=== PATIENT | female | born 1960 | race Caucasian/White ===

== ENCOUNTER → 2018-07-30 | Outpatient (CLI) | payer BC, OTHER ==
[2018-07-30 10:24] VITALS: BP 104/55; PULSE 74; RESP 18; TEMP 98; BMI 32.8
--- NOTE | 2018-07-30 10:55 | P.GSHP ---
History of Present Illness H&P Date: 07/30/18 Chief Complaint: abnormal mammogram The patient is a 58-year-old white female who had a bilateral screening mammogram on [id number]. This was noted to have some new regional calcifications in the central left breast and diagnostic left breast mammogram was recommended. This was performed and [id number]. On this film there was noted to be new regional calcification extending approximately over 7 cm in the left central slight inferior aspect of the breast seen best on lateral view and slightly outer aspect of the breast on CC view. This extends nearly up to the nipple with heterogeneous morphology of the calcifications. The patient has not noted any masses in her breast. She has no complaints of any nipple discharge or changes. She has no history of any trauma or infection to the breast. Family History: 1. maternal aunt: colon 2. maternal grandfather: lung Hormonal History: menarche: 14 : 3, 3 children, first at 23, breast fed: yes menopause: 55 BCP: 2 years hormones: 1 year on progesten stopped this summer Past Surgical History: 1. Kathy-en-Y gastric bypass 2. Right modified total hip replacement 3. Bilateral carpal tunnel 4. Right breast biopsy Past Medical History: 1. Depression and anxiety Social History: smoke: none alcohol: 1 x week/sine drugs: none - Constitutional Constitutional: Reports sweats - EENT Eyes: denies blurred vision, denies photophobia Ears: deny: decreased hearing, tinnitus Ears, nose, mouth and throat: Denies headache, Denies sore throat - Breasts Breasts: bilateral: as per HPI - Cardiovascular Cardiovascular: Denies chest pain, Denies shortness of breath - Respiratory Respiratory: Denies cough, Denies 7 - Gastrointestinal Gastrointestinal: Denies abdominal pain, Denies diarrhea, Denies nausea, Denies vomiting - Genitourinary (Female) Genitourinary: Denies dysuria, Denies hematuria - Menstruation Menstruation: Reports postmenopausal - Musculoskeletal Comment: arthritis Musculoskeletal: Denies myalgias - Integumentary Integumentary: Denies pruritus, Denies rash - Neurological Neurological: Denies numbness, Denies weakness - Psychiatric Psychiatric: Reports anxiety, Reports depression - Endocrine Comment: lost weight 80 pounds after gastric bypass 18 years ago Endocrine: Reports weight change, Denies fatigue - Hematologic/Lymphatic Comment: none - Allergic/Immunologic Allergic/Immunologic: Reports seasonal allergies Past Medical History Past Medical History: No Reported History History of Any Multi-Drug Resistant Organisms: None Reported Past Surgical History: Bariatric Surgery, Breast Surgery, Orthopedic Surgery Past Anesthesia/Blood Transfusion Reactions: No Reported Reaction Past Psychological History: Anxiety, Depression Smoking Status: Never smoker - Past Family History Father Family Medical History: Coronary Artery Disease (CAD), Myocardial Infarction ([place] ) Mother Additional Family Medical History / Comment(s): depression,anxiety Surgical - Exam Vital Signs Temp Pulse Resp BP Pulse Ox 98 F 74 18 104/55 97 07/30/18 10:17 07/30/18 10:17 07/30/18 10:17 07/30/18 10:17 07/30/18 10:17 BMI 32.8 - General well developed, well nourished, no distress - Eyes normal ocular movement - ENT no hearing loss, no congestion - Neck no masses, trachea midline - Respiratory normal respiratory effort, clear to auscultation - Cardiovascular Rhythm: regular Heart Sounds: normal: S1, S2 - Abdomen Abdomen: soft, non tender, no guarding, no rigid, no rebound - Integumentary no rash, no abnormal pigmentation - Neurologic no disoriented, no combative - Musculoskeletal normal gait, normal posture - Psychiatric oriented to time, oriented to person, oriented to place, speech is normal, memory intact Breast examination: Right breast: Well-healed scar from prior biopsy multi-positional exam no dominant masses or nodules of concern Right axilla: No adenopathy of concern Left breast: Multiple positional exam slight increased fullness in the upper outer quadrant area but no dominant masses or nodules of concern Left axilla: No adenopathy of concern Results Radiographic findings reviewed, abnormal left breast mammogram Assessment and Plan Assessment: Impression: 1. Abnormal left breast mammogram 2. Anxiety/depression Plan: 1. Stereotactic core biopsy of the left breast Risk and benefits of the procedure discussed. Risks include bleeding infection reaction to the anesthetic and possibility to not adequately be able to sample specimen. Alternatives would be watchful waiting or open biopsy which are not recommended at this time. The procedure will be scheduled in the near future Cc: Dr. Dodd
== END | disposition home or self-care (01) ==
LOC: WWCWWP 09:34
PROVIDERS: ATTEND Surgery
DX: Z53.9 Procedure and treatment not carried out, unspecified reason (principal)

== ENCOUNTER → 2018-09-03 | Day surgery (SDC) | payer BC ==
[2018-09-03 07:22] VITALS: RESP 16; TEMP 98; BMI 32.8
[2018-09-03 09:07] VITALS: BP 104/68; PULSE 61
--- NOTE | 2018-09-03 11:22 | MM ---
Stereotactic Mammotome core biopsy left breast 2 sites. HISTORY: Microcalcifications The microcalcifications in question within the left breast 2 sites were targeted by the undersigned. Procedure was performed by the undersigned. Informed consent was obtained and all of the patients questions were answered. The standard sterile technique was utilized and appropriate local anesthesia was obtained with 1% lidocaine. 1% lidocaine and epinephrine was also utilized at each site. Mammotome probe was advanced and multiple core samples were obtained from each site and sent to pathology for interpretation. Microclip markers were deployed at the sites of biopsy. Post procedural mammogram demonstrates appropriate deployment of radiopaque clip marker. The patient tolerated the procedure well and left the department in stable condition. Pathology results are pending. IMPRESSION: Successful stereotactic core biopsy left breast 2 sites with pathology results pending. Pathology Results: Malignant A. LEFT BREAST, SITE A, STEREOTACTIC CORE BIOPSY: Ductal carcinoma in situ (DCIS ), grade 2, with focal associated comedo necrosis and calcifications. See Surgical Pathology Cancer Case Sumamry and Comment. B. LEFT BREAST, SITE B, STEREOTACTIC CORE BIOPSY: Ductal carcinoma in situ (DCIS ), grade 2-3, with associated comedo necrosis and calcifications. See Surgical Pathology Cancer Case Summary and comment. Recommendation Surgical consult of the left breast. JORGED
== END ==
LOC: RADMAMWWP 06:53
PROVIDERS: ATTEND Surgery
DX: D05.12 Intraductal carcinoma in situ of left breast (principal)
CPT/HCPCS: 88305; 88342; 19081; 19082; A4648; J2001

== ENCOUNTER → 2018-09-10 | Outpatient (CLI) | payer BC ==
[2018-09-10 09:27] VITALS: BP 108/83; PULSE 82; RESP 18; TEMP 96.2; BMI 32.8
--- NOTE | 2018-09-10 12:15 | P.PN ---
Subjective Progress Note Date: 09/10/18 Principal diagnosis: Left breast ductal carcinoma in situ Leatha is a 58-year-old white female who is status post stereotactic core biopsy of 2 areas of concern in the left breast. Both areas were consistent with ductal carcinoma in situ. The mammogram has been reviewed with radiology and it is felt that the areas of ductal carcinoma in situ span an area over 7 cm. In addition there are other areas of microcalcifications through the breast which are somewhat suspicious. Review of the right breast mammogram does not reveal any area of concern. The patient does not have any complaints following the biopsy. Objective - Vital Signs Vital signs: Vital Signs Temp 96.2 F L 09/10/18 09:18 Pulse 82 09/10/18 09:18 Resp 18 09/10/18 09:18 BP 108/83 09/10/18 09:18 Pulse Ox 99 09/10/18 09:18 Intake & Output 09/09/18 09/10/18 09/10/18 18:59 06:59 18:59 Weight 83.915 kg - Constitutional General appearance: Present: average body habitus - EENT Eyes: Present: EOMI ENT: Present: hearing grossly normal - Neck Neck: Present: normal ROM - Respiratory Respiratory: bilateral: CTA - Cardiovascular Rhythm: regular Heart sounds: normal: S1, S2 - Gastrointestinal General gastrointestinal: Present: soft - Integumentary Integumentary Comment(s): Left breast: Mild ecchymosis at site of this core biopsy, no hematoma - Psychiatric Psychiatric: Present: A&O x's 3, appropriate affect, intact judgment & insight Assessment and Plan Assessment: Impression: 1. 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 Left breast skin sparing mastectomy with immediate reconstruction possible sentinel node biopsy and axillary node dissection At had a long conversation with the patient regarding her biopsy results. I discussed with her that the findings show only precancer and no invasive component. Unfortunately the mammogram reveals a diffuse area of involvement in the breast. It is therefore felt that the patient's best option would be for mastectomy plus or minus immediate reconstruction. Additionally secondary to the vast nature of the DCIS possible sentinel node biopsy was discussed. Her case will be presented at tumor board. The patient understands and wishes to meet with plastic surgery. Her procedure will be scheduled in the near future. cc: Yousif
--- NOTE | 2018-10-07 12:35 | P.GSHP ---
History of Present Illness H&P Date: 10/07/18 Chief Complaint: Ductal carcinoma in situ of the left breast Leatha is a 58-year-old white female who had a bilateral screening mammogram in May 2018. This was noted have some new regional calcifications in the central left breast and a diagnostic left breast mammogram was recommended. On this film there was noted to be new regional calcification extending approximately over 7 cm the left central breast from the slightly inferior aspect best seen on the lateral view and in the outer aspect of the breast on the CC view. Stereo extended nearly up to the nipple with heterogeneous morphology of the calcifications. The patient had not noted any masses in her breast. She had no complaints of any nipple discharge or changes. She had no history of any trauma or infection to the breast. She had stereotactic core biopsy of 2 areas of concern in the left breast. Both areas were consistent with ductal carcinoma in situ. The area was felt to this pain over 7 cm region. In addition there were other areas of microcalcifications felt to be somewhat suspicious. Review of the right breast mammogram did not reveal any area of concern. Family history: 1. Maternal aunt: Colon cancer 2. Maternal grandfather: Lung cancer Hormonal history: Menarche: 14 Pregnancies: 3, 3 children, Versed 23, breast fed: Yes Menopause: 55 control pills: 2 years Hormones: One year on progesterone stopped this summer Past surgical history: 1. Kathy-en-Y gastric bypass 2. Right modified total hip replacement 3. Bilateral carpal tunnel 4. Right breast biopsy Past medical history: 1. Depression and anxiety Social history: Smoke: None Alcohol: One times a week Drugs: None - Constitutional Constitutional: Reports sweats, Denies chills, Denies fever - EENT Eyes: denies blurred vision, denies pain Ears: deny: decreased hearing, tinnitus Ears, nose, mouth and throat: Denies headache, Denies sore throat - Breasts Breasts: bilateral: as per HPI - Cardiovascular Cardiovascular: Denies chest pain, Denies shortness of breath - Respiratory Respiratory: Denies cough, Denies 7 - Gastrointestinal Gastrointestinal: Denies abdominal pain, Denies diarrhea, Denies nausea, Denies vomiting - Genitourinary (Female) Genitourinary: Denies dysuria, Denies hematuria - Menstruation Menstruation: Reports postmenopausal - Genitourinary (Male) Genitourinary: Denies dysuria, Denies hematuria - Musculoskeletal Musculoskeletal: Denies myalgias - Integumentary Integumentary: Denies pruritus, Denies rash - Neurological Neurological: Denies numbness, Denies weakness - Psychiatric Psychiatric: Reports anxiety, Reports depression - Endocrine Comment: Weight loss 80 pounds after gastric bypass 18 years ago Endocrine: Reports weight change, Denies fatigue - Hematologic/Lymphatic Comment: none - Allergic/Immunologic Allergic/Immunologic: Reports seasonal allergies Past Medical History Past Medical History: No Reported History History of Any Multi-Drug Resistant Organisms: None Reported Past Surgical History: Bariatric Surgery, Breast Surgery, Orthopedic Surgery Additional Past Surgical History / Comment(s): right breast [id number] unknown per pt. 2007-modified right hip replacement. [id number] gastric bypass Past Anesthesia/Blood Transfusion Reactions: No Reported Reaction Past Psychological History: Anxiety, Depression Smoking Status: Never smoker Past Alcohol Use History: Occasional Past Drug Use History: None Reported - Past Family History Father Family Medical History: Coronary Artery Disease (CAD), Myocardial Infarction ([place] ) Mother Additional Family Medical History / Comment(s): depression,anxiety Medications and Allergies Home Medications Medication Instructions Recorded Confirmed Type Calcium Carbonate/Vitamin D3 1 each PO DAILY 07/30/18 09/03/18 History [Calcium 500-Vit D3 200 Tablet] DULoxetine HCL [Cymbalta] 60 mg PO DAILY 07/30/18 09/03/18 History Ergocalciferol (Vitamin D2) 50,000 unit PO DIRECTED 07/30/18 09/10/18 History [Vitamin D2] Ferrous Fumarate/Ascorbic Acid 1 cap PO DAILY 07/30/18 09/10/18 History [Chris-Sequels 65-25 mg Caplet] Glucosamine-Chondr 500-400Mg 500 mg PO DAILY 07/30/18 09/10/18 History Multivitamins, Thera [Multivitamin 1 tab PO DAILY 07/30/18 09/10/18 History (formulary)] Hawley-3 Fatty Acids/Fish Oil [Fish 1,000 tab PO DAILY 07/30/18 09/10/18 History Oil 1,000 mg Softgel] lamoTRIgine [LaMICtal] 100 mg PO DAILY 07/30/18 09/10/18 History Cyanocobalamin (Vitamin B-12) 1,000 mcg PO DAILY 08/16/18 09/03/18 History [Vitamin B-12] DULoxetine HCL [Cymbalta] 30 mg PO HS 08/16/18 09/10/18 History QUEtiapine FUMARATE [SEROquel] 200 mg PO HS 08/16/18 09/10/18 History Allergies Allergy/AdvReac Type Severity Reaction Status Date / Time No Known Allergies Allergy Verified 09/03/18 07:15 Surgical - Exam Vital Signs Temp Pulse Resp BP Pulse Ox 96.2 F L 82 18 108/83 99 09/10/18 09:18 09/10/18 09:18 09/10/18 09:18 09/10/18 09:18 09/10/18 09:18 BMI 32.8 - General well developed, well nourished, no distress - Eyes normal ocular movement, no icteric - ENT no hearing loss, no congestion - Neck no masses, trachea midline - Respiratory normal respiratory effort, clear to auscultation - Cardiovascular Rhythm: regular Heart Sounds: normal: S1, S2 - Abdomen Abdomen: soft, non tender, no guarding, no rigid, no rebound - Integumentary no rash, no abnormal pigmentation - Neurologic no disoriented, no combative - Musculoskeletal normal gait, normal posture - Psychiatric oriented to time, oriented to person, oriented to place, speech is normal, memory intact Breast examination: Right breast: Well-healed scar from prior biopsy, multiple positional exam no dominant masses or nodules of concern Right axilla: No adenopathy of concern Left breast: Multi-positional exam slight increased fullness in the upper outer quadrant area but no dominant masses or nodules of concern Left axilla: No adenopathy of concern Results Radiographic findings reviewed, abnormal left breast mammogram, stereo biopsy consistent with ductal carcinoma in situ Assessment and Plan Assessment: Impression: 1. 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 Left breast skin sparing mastectomy with immediate reconstruction, sentinel node biopsy and axillary node dissection At had a long conversation with the patient regarding her biopsy results. I discussed with her that the findings show only precancer and no invasive component. Unfortunately the mammogram reveals a diffuse area of involvement in the breast. It is therefore felt that the patient's best option would be for mastectomy plus or minus immediate reconstruction. Additionally secondary to the vast nature of the DCIS possible sentinel node biopsy was discussed. Her case was presented at tumor board. The patient understood and opted for immediate reconstruction. She is having the stomach Dr. Gaytan. cc: Yousif
== END ==
LOC: WWCWWP 09:15
PROVIDERS: ATTEND Surgery
DX: Z53.9 Procedure and treatment not carried out, unspecified reason (principal)

== ENCOUNTER 2018-10-26 08:02 | Observation (INO) | payer BC ==
[2018-10-21 15:27] VITALS: BMI 32.8
[~2018-10-26 08:02] MED LIST: HEPARIN SODIUM,PORCINE 5,000 UNIT/ML 1 ML VIAL SQ ONE; ceFAZolin IN SWFI 2 GM/20 ML SYRINGE IVP ONE
[2018-10-26] MEDS ORDERED: LACTATED RINGERS 1,000 ML IV ONE ×3 (08:14→12:14)
[2018-10-26] MEDS ORDERED: ALPRAZolam 0.5 MG TAB PO ONE (08:22)
[2018-10-26] MEDS ORDERED: ONDANSETRON 4 MG/2 ML VIAL IVP ONE ×2 (08:23→13:20)
[2018-10-26] MEDS ORDERED: DEXAMETHASONE SOD PHOS (MDV) 100 MG/10 ML VIAL IVP ONE (08:24)
--- NOTE | 2018-10-26 09:11 | NM ---
EXAMINATION TYPE: NM sentinel node injection DATE OF EXAM: 10/26/2018 COMPARISON: NONE HISTORY: Left-sided breast cancer. TECHNIQUE AND FINDINGS: The procedure of sentinel lymph node injection was explained to the patient. The benefits, alternatives, and risks were discussed. An informed consent was then obtained. Overlying skin is cleaned with sterile alcohol. Following this, 527 uCi Tc99m Tilmanocept was inject ed in the upper outer aspect of the left nipple intradermally. The patient tolerated the procedure well without any immediate complication. The patient was kept in the radiology department for short stay after the procedure and then taken to surgery for surgical p rocedure what is presumed intraoperative gamma probe will be used for sentinel lymph node detection. IMPRESSION: Left breast radiotracer injection for sentinel node localization as above.
[2018-10-26] MEDS ORDERED: HEPARIN SODIUM,PORCINE 5,000 UNIT/ML 1 ML VIAL SQ ONE (09:22)
[2018-10-26] MEDS ORDERED: PROPOFOL 10 MG/ML 20 ML VIAL IV ONE (09:24)
[2018-10-26] MEDS ORDERED: fentaNYL (PF) 50 MCG/ML 2 ML AMP ONE (09:24)
[2018-10-26] MEDS ORDERED: LIDOCAINE 1% INJ 10MG/ML (20 ML MDV) ONE (09:24)
[2018-10-26] MEDS ORDERED: SUCCINYLCHOLINE CHLORIDE 100 MG/5 ML SYR IV ONE (09:24)
[2018-10-26] MEDS ORDERED: MIDAZOLAM 2 MG/2 ML VIAL ONE (09:24)
--- NOTE | 2018-10-26 09:24 | P.NAPBC ---
NAPBC Queries - NAPBC Queries Was patient's case review presented at [facility] tumor board? If no, comment.: Yes Was patient's pathology reviewed at [facility]? If no, comment.: Yes Was breast conservation surgery offered? If no, comment.: No (diffuse disease) Was sentinel node biopsy offered? If no, comment.: Yes Was diagnosis confirmed by percutaneous core biopsy? If no, comment.: Yes If mastectomy patient, was a preop referral to a reconstructive surgeon offered? : Yes
[2018-10-26] MEDS ORDERED: NALOXONE 0.4 MG/ML 1 ML VIAL IV PRN (11:17)
[2018-10-26] MEDS ORDERED: CALCIUM CARBONATE 500 MG CHEWABLE PO PRN (11:17)
[2018-10-26] MEDS ORDERED: ONDANSETRON 4 MG/2 ML VIAL IVP PRN (11:17)
--- NOTE | 2018-10-26 11:17 | P.OP ---
Date of Procedure: 10/26/18 Preoperative Diagnosis: Left breast ductal carcinoma in situ extensive Postoperative Diagnosis: Same Procedure(s) Performed: [place] node biopsy, left breast skin sparing mastectomy, immediate subpectoral reconstruction Anesthesia: GEA Surgeon: Bridget James Estimated Blood Loss (ml): 30 IV fluids (ml): 600 Pathology: other ([place], left breast) Condition: stable Disposition: PACU Indications for Procedure: Clear biopsy-proven ductal carcinoma in situ left breast, extensive area Operative Findings: Dense breast tissue Description of Procedure: Leatha is a 58-year-old white female who was noted on a mammogram to have an extensive area of abnormal microcalcifications in the left breast. Core biopsy of 2 sites revealed ductal carcinoma in situ. Secondary to the extensive nature of the disease it was felt that the best approach was a mastectomy. She chose immediate reconstruction. The risks and benefits of the procedure were discussed with the patient and she agreed to proceed. The patient was taken to the operating room and following induction of general anesthesia the left breast and axilla were prepped and draped in a sterile fashion. Preprocedure periareolar injection of radioactive medium was performed. Prior to prepping the patient didn't neoprobe was utilized to identify radioactivity in the axilla. The axillary portion of the procedure was performed initially. Using the neoprobe the area of greatest radioactivity was identified. An incision was made in the axillary hairline. The lymph node of concern was identified using the neoprobe. Using the Harmonic scalpel the node was removed. The 10 second count on the node was 3481. The background axillary 10 second radioactivity count was 7. Following this the wound was well irrigated. The deep tissues were closed using a 3-0 Vicryl suture. The skin was closed using a 4-0 Monocryl. At this time the breast was approached. A circumaerolar incision was made. Skin flaps were developed circumferentially down to the chest wall. Hemostasis was attained using electrocautery device as well as the Harmonic scalpel. The breast was then dissected from [facility] chest wall from medial to lateral being careful to maintain hemostasis using the electro cautery device as well as the Harmonic scalpel. Several feeding vessels feeding into the breast were suture ligated. The breast was then removed using the Harmonic scalpel. The wound was well irrigated. No active bleeding was identified. Dr. Gaytan from plastic surgery then entered the room. He will proceed with subpectoral implant placement.
[2018-10-26] MEDS ORDERED: HYDROmorphone 1 MG/ML 1 ML SYRINGE IVP ONE ×2 (12:35→12:45)
--- NOTE | 2018-10-26 12:47 | OP ---
OPERATIVE REPORT DATE OF SURGERY: 10/26/2018. SURGEON: Shant العراقي MD PREOPERATIVE DIAGNOSES: 1. Acquired loss left breast. 2. Breast cancer, left breast. POSTOPERATIVE DIAGNOSES: 1. Acquired loss, left breast. 2. Breast cancer, left breast. OPERATIVE PROCEDURES: 1. Immediate reconstruction left breast following mastectomy with insertion of tissue civil project engineer, subsequent outpatient expansion. 2. Implantation of reconstructive graft for left breast reconstruction. OPERATIVE INDICATIONS: The patient is a 58-year-old female who plans to undergo a left-sided mastectomy for left breast cancer. She was referred to my care by her cancer surgeon, Dr. James. The patient was seen and evaluated in consultation for breast reconstruction is left to proceed with a tissue X civil project engineer style reconstruction. The patient understands the staged nature of breast reconstructive surgery as well as the potential risks and complications related to today's procedure. She has requested I perform the surgery. OPERATIVE PROCEDURE SUMMARY: The patient is seen presurgical area, markings made, procedure reviewed. All questions answered. She was transported to the operating room where she was placed in supine position. Following induction general tracheal anesthesia, she was prepped and draped in usual fashion. Dr. James and her surgical team proceeded with the left sentinel lymph node excision and left sided mastectomy. Once the procedures were completed, I was contacted to come to the operative suite. The patient was in supine position under general endotracheal anesthesia. Sponge and needle counts of prior procedure were correct. The mastectomy wound was open packed with laparotomy sponges. There was no active bleeding. Sponges were removed. The cavity was irrigated. The pectorals major muscle was identified where it joined the chest wall on the lateral aspect, loose areolar connective tissue divided with cautery here, allowing entry into the potential plane between the pectorals major and minor muscles which was bluntly developed. Medial attachment fibers of the pectorals major ribs released with cautery but not sternal attachments. Inferior attachments of the pectorals major muscle to ribs were released with cautery. To obtain sufficient muscle coverage for the reconstructive process required recruitment of additional muscle groups. Inferomedially rectus abdominis muscle fascia, inferolaterally external abdominal oblique muscle and fascia and laterally serrated anterior muscle and fascia were all elevated with cauterization through this access. Hemostasis maintained with cautery. Once a sufficient sized submuscular pocket was created, irrigation was performed. Hemostasis was excellent. The cavity was sized. The tissue civil project engineer was now opened on the field. Gloves were changed. Ultimately, a 600 mL size mentor ultra high-profile civil project engineer was selected based on size. The reference number for the civil project engineer was [id number], serial #[id number]. The device was only handled by the surgeon, once removed from the packaging, all air was extracted and 50 mL 0.9 normal saline is instilled and is inserted in the reconstructive submuscular location created, oriented under direct vision. The muscle flap tissue could not be approximated over the civil project engineer without extreme tension. Therefore SurgiMend reconstructive graft was opened on the field measuring 10 x 15 cm. Once revitalized at room temperature saline, the entire sheet graft was placed into the reconstructive plane deep to the muscle flap tissue, but above the civil project engineer, oriented and modified inferior sling formation and then sutured in place using interrupted and short running 3-0 Vicryl. Complete coverage of the civil project engineer was now obtained. Additional fluid was added to the civil project engineer making the final volume 250 mL which appeared optimal. Irrigation was performed. Hemostasis was excellent. A 19 round Zev channel drain inserted in the surgical field and brought out separate stab incision left anterior chest wall, sutured in place with 2-0 Prolene. The mastectomy wound was now closed using a pursestring deep dermal technique. The mastectomy approach was through a circumareolar incision. This was now closed as a muscogee via the pursestring, deep dermal suture technique using 2-0 Prolene followed by final approximation of the deep dermis using inverted interrupted 4-0 Monocryl and then completing the skin closure with interrupted king to finally approximate the epidermis. The surgical figueroa cleansed with saline, dried, postoperative bandages placed and drain connected to close bulb suction. The patient was then awakened from her anesthetic, extubated, transferred to recovery room in good condition and stable vital signs. ESTIMATED BLOOD LOSS: Of this portion of procedure was 20 mL. There were no complications. MMODL / IJN: [id number] /
[2018-10-26] MEDS: HYDROmorphone 1 MG/ML 1 ML SYRINGE IVP ONE ×2 (12:56→13:08)
[2018-10-26] MEDS: ceFAZolin 1,000 MG in DEXTROSE/WATER 1 50ML.BAG IVPB SCH ×2 (14:51→20:29)
[2018-10-26] MEDS: HYDROmorphone 1 MG/ML 1 ML SYRINGE IV PRN ×2 (16:14→21:03)
[2018-10-26] MEDS: HEPARIN SODIUM,PORCINE 5,000 UNIT/ML 1 ML VIAL SQ SCH ×2 (16:17→23:36)
[2018-10-26] MEDS: DEXTROSE 5%-0.45% NACL 1,000 ML IV SCH ×2 (17:29→21:10)
[2018-10-26] MEDS: HYDROcodone/APAP 5-325MG 1 EACH TAB PO PRN (18:38)
[2018-10-26] MEDS: QUEtiapine 200 MG TAB PO SCH (22:06)
[2018-10-26] MEDS: DULoxetine HCL 30 MG CAPSULE.DR PO SCH (22:06)
[2018-10-27] MEDS: HYDROmorphone 1 MG/ML 1 ML SYRINGE IV PRN ×3 (02:10→21:06)
[2018-10-27] MEDS: HYDROcodone/APAP 5-325MG 1 EACH TAB PO PRN ×3 (05:23→18:05)
[2018-10-27 07:25] VITALS: RESP 18
[2018-10-27] MEDS: HEPARIN SODIUM,PORCINE 5,000 UNIT/ML 1 ML VIAL SQ SCH ×2 (07:30→16:05)
[2018-10-27] MEDS: DULoxetine HCL 60 MG CAPSULE.DR PO SCH (07:32)
[2018-10-27] MEDS: lamoTRIgine 100 MG TAB PO SCH (07:32)
[2018-10-27 08:00] LABS: Basophils % (A) 0 %; Eosinophils # (A) 0.2 k/uL (0-0.7); Eosinophils % (A) 2 %; HCT 37.7 % (34.0-46.0); HGB 12.4 gm/dL (11.4-16.0); Lymphocytes % (A) 27 %; MCH 30.7 pg (25.0-35.0); MCHC 32.8 g/dL (31.0-37.0); MCV 93.8 fL (80.0-100.0); Mean Platelet Volume 7.6; Monocytes # (A) 0.6 k/uL (0-1.0); Monocytes % (A) 8 %; Neutrophils # (A) 4.5 k/uL (1.3-7.7); Neutrophils % (A) 61 %; Platelet Count 200 k/uL (150-450); RBC 4.02 m/uL (3.80-5.40); RDW 13.1 % (11.5-15.5); WBC 7.4 k/uL (3.8-10.6)
[2018-10-27] MEDS: DEXTROSE 5%-0.45% NACL 1,000 ML IV SCH (11:07)
--- NOTE | 2018-10-27 12:12 | P.PN ---
Subjective Progress Note Date: 10/27/18 Leatha is a 58-year-old white female status post left breast skin sparing mastectomy, and sentinel node biopsy. She had immediate subpectoral implant placement. She is postop day #1. Postoperatively she states she has some discomfort at the drain site as well as under her arm. She states that the area of the mastectomy she has an aching sensation. Her drain is putting out serous fluid. She is tolerating her diet without difficulty. Objective - Vital Signs Vital signs: Vital Signs Temp 98.1 F 10/27/18 07:25 Pulse 80 10/27/18 07:25 Resp 18 10/27/18 07:25 BP 100/66 10/27/18 07:25 Pulse Ox 95 10/27/18 07:25 Intake & Output 10/26/18 10/27/18 10/27/18 18:59 06:59 18:59 Intake Total 2600 1850 Output Total 685 1795 50 Balance 1915 55 -50 Intake: IV 2600 Intake, IV Titration 1050 Amount Dextrose 5%-0.45% NaCl 1, 1000 000 ml @ 100 mls/hr IV . Q10H ANDRÉS Rx#:[id number] ceFAZolin 1,000 mg In 50 Dextrose/Water 1 50ml.bag @ 100 mls/hr IVPB Q6HR ANDRÉS Rx#:[id number] Oral 800 Output: Drainage 95 70 50 Left Chest 95 70 50 Urine 510 1725 Estimated Blood Loss 80 Other: Voiding Method Toilet # Voids 200 1 1 - Constitutional General appearance: Present: obese - EENT Eyes: Present: EOMI ENT: Present: hearing grossly normal - Neck Neck: Present: normal ROM - Respiratory Respiratory: bilateral: CTA - Cardiovascular Rhythm: regular Heart sounds: normal: S1, S2 - Gastrointestinal General gastrointestinal: Present: soft - Integumentary Integumentary Comment(s): Mild erythema circumferentially around the breast incision no evidence of infection Axillary incision clean and dry - Psychiatric Psychiatric: Present: A&O x's 3, appropriate affect, intact judgment & insight - Labs CBC & Chem 7: 10/27/18 07:44 Assessment and Plan Assessment: Impression: 1. Postop day #1 skin sparing mastectomy, sentinel node biopsy, subpectoral implant reconstruction 2. Discomfort at the axillary incision and drain site 3. Hemoglobin 12.4, WBC 7.4 4. Patient passing flatus Plan: 1. Change IV to heparin lock 2. Follow JEN drain output 3. Continue pain control 4. Probable discharge home tomorrow 5. Patient requesting stool softener
[2018-10-27] MEDS: DOCUSATE 100 MG CAP PO SCH (15:02)
[2018-10-27] MEDS: DULoxetine HCL 30 MG CAPSULE.DR PO SCH (21:03)
[2018-10-27] MEDS: QUEtiapine 200 MG TAB PO SCH (21:03)
[2018-10-28] MEDS: HEPARIN SODIUM,PORCINE 5,000 UNIT/ML 1 ML VIAL SQ SCH ×2 (00:36→08:35)
[2018-10-28] MEDS: HYDROmorphone 1 MG/ML 1 ML SYRINGE IV PRN (00:50)
[2018-10-28] MEDS: HYDROcodone/APAP 5-325MG 1 EACH TAB PO PRN ×2 (06:02→10:14)
[2018-10-28 07:43] VITALS: BP 102/67; PULSE 75; TEMP 98.3
[2018-10-28] MEDS: DOCUSATE 100 MG CAP PO SCH (08:35)
[2018-10-28] MEDS: lamoTRIgine 100 MG TAB PO SCH (08:35)
[2018-10-28] MEDS: DULoxetine HCL 60 MG CAPSULE.DR PO SCH (08:35)
--- NOTE | 2018-10-28 08:49 | P.PN ---
Subjective Progress Note Date: 10/28/18 Principal diagnosis: Postop day #2 left skin sparing mastectomy, sentinel node biopsy, subpectoral implant placement for reconstruction Leatha is a 58-year-old white female status post left breast skin sparing mastectomy, and sentinel node biopsy. She had immediate subpectoral implant placement. She is postop day #2. Her postoperative discomfort has decreased. Her drain is putting out serous fluid, 30 mL recorded this a.m. She had put out approximately 60 mL of serous fluid overnight. She is tolerating her diet without difficulty. Objective - Vital Signs Vital signs: Vital Signs Temp 98.3 F 10/28/18 07:30 Pulse 75 10/28/18 07:30 Resp 18 10/28/18 07:30 BP 102/67 10/28/18 07:30 Pulse Ox 98 10/28/18 07:30 Intake & Output 10/27/18 10/28/18 10/28/18 18:59 06:59 18:59 Intake Total 120 1100 Output Total 123 60 30 Balance -3 1040 -30 Intake: Oral 120 1100 Output: Drainage 123 60 30 Left Chest 123 60 30 Other: Voiding Method Toilet # Voids 1 1 - Constitutional General appearance: Present: obese - EENT Eyes: Present: EOMI ENT: Present: hearing grossly normal - Respiratory Respiratory: bilateral: CTA - Cardiovascular Rhythm: regular Heart sounds: normal: S1, S2 - Gastrointestinal General gastrointestinal: Present: soft - Integumentary Integumentary Comment(s): Incisions clean and dry Decreased erythema at circumareolar incision site from yesterday, no evidence of any infection No swelling or ecchymosis of concern at the mastectomy site JEN drainage is serosanguineous but largely serous - Psychiatric Psychiatric: Present: A&O x's 3, appropriate affect, intact judgment & insight - Labs CBC & Chem 7: 10/27/18 07:44 Assessment and Plan Assessment: Impression: 1. Postop day #2 skin sparing mastectomy, sentinel node biopsy, subpectoral implant reconstruction 2. Discomfort at the axillary incision and drain site improved 3. Hemoglobin 12.4, WBC 7.4 on 10-27-18 Plan: 1. Teaching drain care 2. Discharge home today to be followed as an outpatient 3. Patient to call for any questions or concerns Cc: Dr. Dodd
--- NOTE | 2018-10-28 09:08 | P.DS ---
Providers Date of admission: 10/27/18 05:26 Attending physician: Bridget James Primary care physician: [facility] Hospital Course: Patient is a 58-year-old white female status post left breast skin sparing mastectomy, sentinel node biopsy, and subpectoral breast implant reconstruction. The patient is doing well at this time. Her Brett-Mack drain output is serous in nature. She is going to be discharged home to be followed as an outpatient by Dr. Blake as well as Dr. Gaytan. Procedures: Left skin sparing mastectomy, sentinel node biopsy, subpectoral implant placement for immediate reconstruction Patient Condition at Discharge: Good Plan - Discharge Summary Discharge Rx Participant: No New Discharge Prescriptions: No Action DULoxetine HCL [Cymbalta] 60 mg PO DAILY lamoTRIgine [LaMICtal] 100 mg PO DAILY Ergocalciferol (Vitamin D2) [Vitamin D2] 50,000 unit PO QMONTH DULoxetine HCL [Cymbalta] 30 mg PO HS QUEtiapine FUMARATE [SEROquel] 200 mg PO HS Discharge Medication List DULoxetine HCL [Cymbalta] 60 mg PO DAILY 07/30/18 [History] Ergocalciferol (Vitamin D2) [Vitamin D2] 50,000 unit PO QMONTH 07/30/18 [History ] lamoTRIgine [LaMICtal] 100 mg PO DAILY 07/30/18 [History] DULoxetine HCL [Cymbalta] 30 mg PO HS 08/16/18 [History] QUEtiapine FUMARATE [SEROquel] 200 mg PO HS 08/16/18 [History] Follow up Appointment(s)/Referral(s): Shant العراقي MD [STAFF PHYSICIAN] - 1 Week Bridget James MD [STAFF PHYSICIAN] - 11/04/18 1:40 pm Activity/Diet/Wound Care/Special Instructions: 1. Teach patient drain care 2. Do not drive to see by Dr. Blake 3. Patient may take shower Discharge Disposition: HOME SELF-CARE
== END 2018-10-28 10:29 | disposition home or self-care (01) ==
LOC: OR 08:02 → 6PED 12:25 → OR 10-27 05:34
PROVIDERS: ADMIT Surgery; ATTEND Surgery
DX: D05.12 Intraductal carcinoma in situ of left breast (principal); E66.9 Obesity, unspecified; Z68.32 Body mass index [BMI] 32.0-32.9, adult; F32.9 Major depressive disorder, single episode, unspecified; F41.9 Anxiety disorder, unspecified; Z79.899 Other long term (current) drug therapy; Z98.84 Bariatric surgery status; Z82.49 Family history of ischemic heart disease and other diseases of the circulatory system; Z83.3 Family history of diabetes mellitus
CPT/HCPCS: 85025; 88342; 88307; 88309; 88341; 38792; 19303; 19357; 38525; G0378 ×2; C1763; A9520; J2250; J1644 ×3; J2405; J2001; J3010; J1170 ×3; J0690 ×2; J1100; J0330; J2704

== ENCOUNTER 2018-11-02 19:47 | Emergency (ER) | payer BC ==
[2018-11-02 19:52] VITALS: TEMP 98.3
[2018-11-02] MEDS ORDERED: ONDANSETRON 4 MG/2 ML VIAL IVP STA (20:36)
[2018-11-02] MEDS ORDERED: MORPHINE SULFATE 4 MG/ML SYRINGE IVP STA ×2 (20:36→22:48)
--- NOTE | 2018-11-02 20:51 | ED ---
General Adult HPI - General Chief complaint: Recheck/Abnormal Lab/Rx Stated complaint: Pain post breast surgery Time Seen by Provider: 11/02/18 19:56 Source: patient Mode of arrival: ambulatory Limitations: no limitations - History of Present Illness Initial comments: 58-year-old female patient who underwent left sided mastectomy with placement of the tissue expanders on 10/26/[address] James, presents to the emergency department today for evaluation of increased pain to the incision site and to her left upper back. Patient states that she was doing well, was only taking Tylenol for pain yesterday. Patient states starting this morning she had increase in pain. Patient states she's had a normal amount of output in her JEN drain. She denies any purulent output. She denies any fevers or chills. She denies any shortness of breath with this. States that deep breathing does not increase the pain. States that she is having some nausea but has not had any vomiting. Denies any abdominal pain. Patient denies any recent rash, diarrhea, constipation, back pain, numbness, tingling, dizziness, weakness, hematuria, dysuria, urinary urgency, urinary frequency, headache, visual changes, or any other complaints. - Related Data Home Medications Medication Instructions Recorded Confirmed DULoxetine HCL [Cymbalta] 60 mg PO DAILY 07/30/18 11/02/18 Ergocalciferol (Vitamin D2) 50,000 unit PO Q30D 07/30/18 11/02/18 [Vitamin D2] lamoTRIgine [LaMICtal] 100 mg PO DAILY 07/30/18 11/02/18 DULoxetine HCL [Cymbalta] 30 mg PO HS 08/16/18 11/02/18 QUEtiapine FUMARATE [SEROquel] 200 mg PO HS 08/16/18 11/02/18 HYDROcodone/APAP 5-325MG [[place] 1 tab PO TID PRN 11/02/18 11/02/18 5-325] Previous Rx's Medication Instructions Recorded Hydrocodone/Acetaminophen [[place] 1 tab PO Q6HR PRN #12 tab 11/02/18 5-325] Allergies Allergy/AdvReac Type Severity Reaction Status Date / Time No Known Allergies Allergy Verified 11/02/18 20:15 Review of Systems ROS Statement: Those systems with pertinent positive or pertinent negative responses have been documented in the HPI. ROS Other: All systems not noted in ROS Statement are negative. Past Medical History Past Medical History: Cancer, Osteoarthritis (OA) History of Any Multi-Drug Resistant Organisms: None Reported Past Surgical History: Bariatric Surgery, Breast Surgery, Orthopedic Surgery Additional Past Surgical History / Comment(s): right breast biopsy-benign. right hip replacement. Kathy-En-Y gastric bypass. left hip labrum cuff repair. chemo carpal tunnel release Past Anesthesia/Blood Transfusion Reactions: No Reported Reaction Past Psychological History: Anxiety, Depression Smoking Status: Never smoker Past Alcohol Use History: None Reported Past Drug Use History: None Reported - Past Family History Father Family Medical History: Coronary Artery Disease (CAD), Myocardial Infarction ([place] ) Mother Additional Family Medical History / Comment(s): depression,anxiety General Exam Limitations: no limitations General appearance: alert, in no apparent distress, other (This is a well- developed, well-nourished adult female patient in no acute distress. Vital signs upon presentation are temperature 98.3F, pulse 73, respirations 17, blood pressure 136/82, pulse ox 100% on room air.) Eye exam: Present: normal appearance, PERRL, EOMI. Absent: scleral icterus, conjunctival injection, periorbital swelling Respiratory exam: Present: normal lung sounds bilaterally. Absent: respiratory distress, wheezes, rales, rhonchi, stridor Cardiovascular Exam: Present: regular rate, normal rhythm, normal heart sounds. Absent: systolic murmur, diastolic murmur, rubs, gallop, clicks GI/Abdominal exam: Present: soft, normal bowel sounds. Absent: distended, tenderness, guarding, rebound, rigid Neurological exam: Present: alert, oriented X3, CN II-XII intact Psychiatric exam: Present: normal affect, normal mood Skin exam: Present: warm, dry, intact, normal color, other (Patient has incision to the left chest wall consistent with mastectomy. Skin is pink, warm , dry. There is no erythema. No drainage from the incision site. Area is well approximated with king. There is a JEN drain present, no erythema or drainage surrounding the insertion site. Drainage in the bulb is serosanguineous with no purulence.). Absent: rash Course Vital Signs 11/02/18 11/02/18 19:49 22:58 Temperature 98.3 F Pulse Rate 73 75 Respiratory 17 16 Rate Blood Pressure 136/82 124/66 O2 Sat by Pulse 100 99 Oximetry EKG Findings - EKG Comments: EKG Findings:: EKG obtained at 2138 shows normal sinus rhythm with a ventricular rate of 64, [place] interval 182, QRS duration 84, QT 394, QTC 406. No evidence of ST elevation or depression. Medical Decision Making - Medical Decision Making 58-year-old female patient presents to the emergency department today for evaluation of incisional pain and left upper back pain. Patient is status post left-sided mastectomy with tissue prison keeper insertion about one week ago. Patient surgeon is Dr. James. Physical examination reveals a well approximated left chest wall surgical incision with no surrounding erythema or purulent drainage. Patient also has a JEN drain inserted with no evidence of infection around the insertion site. There is serosanguineous fluid coming from the drain. Patient does have some tenderness over the left lateral chest wall, skin is soft, supple. Patient is afebrile, vital signs are stable. EKG showed normal sinus rhythm. Labs reviewed and are unremarkable. Patient has no respiratory symptoms, pain does not change with deep breathing or cough. She is tolerating oral intake. At this time we will refill her prescription for [place] for pain control. She is instructed to follow-up with her surgeon for reevaluation as soon as possible, she does have an appointment on . Return parameters are discussed in detail. She verbalizes understanding and agrees this plan. - Lab Data Result diagrams: 11/02/18 21:01 11/02/18 21:01 Lab Results 11/02/18 11/02/18 11/02/18 Range/Units 21:01 21:01 21:01 WBC 7.3 (3.8-10.6) k/uL RBC 4.01 (3.80-5.40) m/uL Hgb 11.6 (11.4-16.0) gm/dL Hct 37.2 (34.0-46.0) % MCV 92.8 (80.0-100.0) fL MCH 29.0 (25.0-35.0) pg MCHC 31.2 (31.0-37.0) g/dL RDW 13.0 (11.5-15.5) % Plt Count 322 (150-450) k/uL Neutrophils % 60 % Lymphocytes % 22 % Monocytes % 8 % Eosinophils % 7 % Basophils % 0 % Neutrophils # 4.4 (1.3-7.7) k/uL Lymphocytes # 1.6 (1.0-4.8) k/uL Monocytes # 0.6 (0-1.0) k/uL Eosinophils # 0.5 (0-0.7) k/uL Basophils # 0.0 (0-0.2) k/uL Sodium 135 L (137-145) mmol/L Potassium 4.5 (3.5-5.1) mmol/L Chloride 106 (98-107) mmol/L Carbon Dioxide 24 (22-30) mmol/L Anion Gap 5 mmol/L BUN 14 (7-17) mg/dL Creatinine 0.50 L (0.52-1.04) mg/dL Est GFR (CKD-EPI)AfAm >90 (>60 ml/min/1.73 sqM) Est GFR (CKD-EPI)NonAf >90 (>60 ml/min/1.73 sqM) Glucose 102 H (74-99) mg/dL Plasma Lactic Acid Anthony 0.6 L (0.7-2.0) mmol/L Calcium 9.0 (8.4-10.2) mg/dL Total Bilirubin 0.5 (0.2-1.3) mg/dL AST 39 H (14-36) U/L ALT 56 H (9-52) U/L Alkaline Phosphatase 41 (38-126) U/L Troponin I (0.000-0.034) ng/mL Total Protein 5.9 L (6.3-8.2) g/dL Albumin 3.6 (3.5-5.0) g/dL 11/02/18 Range/Units 21:01 WBC (3.8-10.6) k/uL RBC (3.80-5.40) m/uL Hgb (11.4-16.0) gm/dL Hct (34.0-46.0) % MCV (80.0-100.0) fL MCH (25.0-35.0) pg MCHC (31.0-37.0) g/dL RDW (11.5-15.5) % Plt Count (150-450) k/uL Neutrophils % % Lymphocytes % % Monocytes % % Eosinophils % % Basophils % % Neutrophils # (1.3-7.7) k/uL Lymphocytes # (1.0-4.8) k/uL Monocytes # (0-1.0) k/uL Eosinophils # (0-0.7) k/uL Basophils # (0-0.2) k/uL Sodium (137-145) mmol/L Potassium (3.5-5.1) mmol/L Chloride (98-107) mmol/L Carbon Dioxide (22-30) mmol/L Anion Gap mmol/L BUN (7-17) mg/dL Creatinine (0.52-1.04) mg/dL Est GFR (CKD-EPI)AfAm (>60 ml/min/1.73 sqM) Est GFR (CKD-EPI)NonAf (>60 ml/min/1.73 sqM) Glucose (74-99) mg/dL Plasma Lactic Acid Anthony (0.7-2.0) mmol/L Calcium (8.4-10.2) mg/dL Total Bilirubin (0.2-1.3) mg/dL AST (14-36) U/L ALT (9-52) U/L Alkaline Phosphatase (38-126) U/L Troponin I <0.012 (0.000-0.034) ng/mL Total Protein (6.3-8.2) g/dL Albumin (3.5-5.0) g/dL Disposition Clinical Impression: Incisional pain Disposition: HOME SELF-CARE Condition: Good Instructions (If sedation given, give patient instructions): Mastectomy (DC) Additional Instructions: Take medication as directed. Follow up with her surgeon for recheck as soon as possible. Return to the emergency department immediately for any new, worsening , or concerning symptoms. Prescriptions: Hydrocodone/Acetaminophen [[place] 5-325] 1 tab PO Q6HR PRN #12 tab PRN Reason: Pain Is patient prescribed a controlled substance at d/c from ED?: No Referrals: Scooby Dodd DO [Primary Care Provider] - 1-2 days Bridget James MD [STAFF PHYSICIAN] - 1-2 days Time of Disposition: 23:03
[2018-11-02 21:21] LABS: Basophils % (A) 0 %; Eosinophils # (A) 0.5 k/uL (0-0.7); Eosinophils % (A) 7 %; HCT 37.2 % (34.0-46.0); HGB 11.6 gm/dL (11.4-16.0); Lymphocytes # (A) 1.6 k/uL (1.0-4.8); Lymphocytes % (A) 22 %; MCHC 31.2 g/dL (31.0-37.0); MCV 92.8 fL (80.0-100.0); Mean Platelet Volume 6.3; Monocytes # (A) 0.6 k/uL (0-1.0); Monocytes % (A) 8 %; Neutrophils # (A) 4.4 k/uL (1.3-7.7); Neutrophils % (A) 60 %; Platelet Count 322 k/uL (150-450); RBC 4.01 m/uL (3.80-5.40); WBC 7.3 k/uL (3.8-10.6)
[2018-11-02 21:31] LABS: ALT 56 U/L (9-52); AST 39 U/L (14-36); Albumin 3.6 g/dL (3.5-5.0); Alkaline Phosphatase 41 U/L (38-126); Anion Gap 5 mmol/L; Blood Urea Nitrogen 14 mg/dL (7-17); Carbon Dioxide 24 mmol/L (22-30); Chloride 106 mmol/L (98-107); Glucose 102 mg/dL (74-99); Potassium 4.5 mmol/L (3.5-5.1); Sodium 135 mmol/L (137-145); Total Bilirubin 0.5 mg/dL (0.2-1.3); Total Protein 5.9 g/dL (6.3-8.2)
[2018-11-02] MEDS ORDERED: SIMETHICONE 80 MG CHEWABLE PO STA (22:49)
[2018-11-02 22:59] VITALS: BP 124/66; PULSE 75; RESP 16
== END 2018-11-02 23:33 | disposition home or self-care (01) ==
LOC: EC 19:47
DX: R07.89 Other chest pain (principal); M54.6 Pain in thoracic spine; G89.18 Other acute postprocedural pain; R11.0 Nausea; M19.90 Unspecified osteoarthritis, unspecified site; F41.9 Anxiety disorder, unspecified; F32.9 Major depressive disorder, single episode, unspecified; Z90.12 Acquired absence of left breast and nipple; Z96.641 Presence of right artificial hip joint; Z98.84 Bariatric surgery status; Z98.890 Other specified postprocedural states; Z79.899 Other long term (current) drug therapy
CPT/HCPCS: 36415; 93005; 80053; 83605; 84484; 85025; 87040; 99284; 96374; 96375; 96376; J2270; J2405

== ENCOUNTER → 2018-11-04 | Outpatient (CLI) | payer BC ==
[2018-11-04 14:04] VITALS: BP 105/51; PULSE 87; RESP 18; TEMP 98.2; BMI 32.8
--- NOTE | 2018-11-04 14:39 | P.PN ---
Subjective Progress Note Date: 11/04/18 Principal diagnosis: Postop left mastectomy and sentinel node biopsy Leatha is postop left mastectomy and sentinel node biopsy. She complained of left back pain approximately 2 days ago and was seen in the emergency room. At that time no cause of the pain was identified and she was discharged home. She states that the pain then went away but returned this morning in a much more mild fashion. It appears to be point tenderness in the mid back. She states that she believes is musculoskeletal in nature and is aggravated by turning her head. Her JEN drain continues to put out up proximally 170 mL of serous fluid per day. 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 Objective - Vital Signs Vital signs: Vital Signs Temp 98.2 F 11/04/18 13:51 Pulse 87 11/04/18 13:51 Resp 18 11/04/18 13:51 BP 105/51 11/04/18 13:51 Pulse Ox 98 11/04/18 13:51 Intake & Output 11/03/18 11/04/18 11/04/18 18:59 06:59 18:59 Weight 83.915 kg - Constitutional General appearance: Present: no acute distress - EENT Eyes: Present: EOMI ENT: Present: hearing grossly normal - Respiratory Respiratory: bilateral: CTA - Cardiovascular Rhythm: regular Heart sounds: normal: S1, S2 - Gastrointestinal General gastrointestinal: Present: soft - Integumentary Integumentary Comment(s): Incision in the left breast and axilla clean and dry No evidence of infection No evidence of hematoma JEN drainage serosanguineous in nature, very thin - Musculoskeletal Musculoskeletal Comment(s): No evidence of bleeding scapula Point tenderness to left mid back, appears to be tight muscle at this site Assessment and Plan Assessment: Impression: 1. Patient status post left mastectomy with immediate reconstruction and sentinel node biopsy 2. Back discomfort suspect musculoskeletal Plan: 1. Patient is going to continue present therapy and follow-up Dr. Gaytan on Thursday 2. Patient will see massage therapist regarding musculoskeletal pain 3. Follow-up tomorrow after see massage therapist 4. Appointment with Dr. Harley CC: Dr. Dodd
== END ==
LOC: WWCWWP 13:42
PROVIDERS: ATTEND Surgery
DX: Z53.9 Procedure and treatment not carried out, unspecified reason (principal)

== ENCOUNTER → 2018-11-05 | Outpatient (CLI) | payer BC ==
[2018-11-05 11:02] VITALS: BP 117/79; PULSE 79; RESP 18; TEMP 97.7; BMI 32.8
--- NOTE | 2018-11-05 11:24 | P.PN ---
Progress Note - Text Progress Note Date: 11/05/18 Leatha is a 58-year-old white female who is [place] [id number]. She had some postoperative discomfort believed related to musculoskeletal symptoms for which she was seen in the emergency department. She was evaluated and released. The pain was greatest in her mid back. Today she underwent a massage and states that the pain has improved somewhat but is not completely gone. She has no complaints related to the axilla or related to the breast. JEN drain is in place and putting out serous fluid last night she had only 30 mL out. She is hemodynamically stable at this time with a blood pressure 117/79, and heart rate is 78. Physical examination: Incision breast and axilla clean and dry no evidence of infection No evidence of any hematoma JEN serous drainage Impression: 1. Patient stable status post left mastectomy with immediate reconstruction and sentinel node biopsy 2. Decreased musculoskeletal/back pain Plan: 1. Follow-up Dr. Gaytan next week 2. Follow appearing 2 weeks 3. Patient to call immediately if any questions or concerns Cc: Dr. Page Dodd
== END ==
LOC: WWCWWP 10:48
PROVIDERS: ATTEND Surgery
DX: Z53.9 Procedure and treatment not carried out, unspecified reason (principal)

== ENCOUNTER → 2018-11-19 | Outpatient (CLI) | payer BC ==
[2018-11-19 16:25] VITALS: BP 127/84; PULSE 62; RESP 16; TEMP 97.5; BMI 32.8
--- NOTE | 2018-11-19 16:47 | P.PN ---
Progress Note - Text Progress Note Date: 11/19/18 Leatha is a 58-year-old white female status post left mastectomy with immediate subpectoral implant reconstruction performed on 10/26/2018. The patient has done well postoperatively. She will be seen by plastic surgery the 11 and additional saline was placed in the implant. The patient had king removed by plastic surgery at that time. The patient does complain this and king have been removed she has a small amount of drainage from the site and some slight opening at the site. The patient has had no fever or chills. Her JEN drain is putting out serous fluid used to put out [id number] per day continues to put out about 90 mL per day. The patient's tumor is multifocal TisNoMo ER/IA positive grade 1/2. Lungs: Clear Heart: Regular rate and rhythm Incision: Mild separation at the circumareolar site with mild amount of drainage , this was cleaned and a Steri-Strip was placed. There is no evidence of active infection Impression: 1. Patient doing well at this time with a Tis N0 M0 ER/IA positive grade 1/2 left breast cancer, multifocal status post mastectomy with immediate reconstruction, sentinel nodes negative for cancer 2. Patient recently seen by Dr. Gaytan and additional flow placed in the implant 3. JEN drainage continues to be 90 mL per day but is serous Plan: 1. Medical oncology consultation 2. Continue present therapy with drain 3. Follow-up with Dr. Gaytan in 2 weeks 4. Follow here in 1 week Cc: Dr. Mane Earl, Dr. Page Dodd
== END | disposition home or self-care (01) ==
LOC: WWCWWP 15:40
PROVIDERS: ATTEND Surgery
DX: Z53.9 Procedure and treatment not carried out, unspecified reason (principal)

== ENCOUNTER → 2018-12-24 | Outpatient (CLI) | payer BC ==
--- NOTE | 2018-12-24 09:10 | P.PN ---
Subjective Progress Note Date: 12/24/18 Patient is a 58-year-old white female who is status post left mastectomy with immediate subpectoral reconstruction performed and . The patient postoperatively has done well however she continues to have a JEN drain in place. The JEN drain is putting out between 50-60 mL for each 24-hour period. She is following with Dr. Gaytan from plastic surgery. Additionally the central portion of the wound and this has been treated with ointment. There is no evidence of any infection and the area is granulating well. The patient states that she does have some discomfort in the lateral aspect of the chest wall. This is not new. The patient has no complaints of any fever or chills. The patient is seen medical oncology next week. The tumor was a T IVS N0 M0 ER/KS positive grade 1/2 lesion. Objective - Vital Signs Vital signs: Vital Signs Temp 97.8 F 12/24/18 08:43 Pulse 91 12/24/18 08:43 Resp 16 12/24/18 08:43 BP 101/49 12/24/18 08:43 Pulse Ox 97 12/24/18 08:43 Intake & Output 12/23/18 12/24/18 12/24/18 18:59 06:59 18:59 Weight 83.915 kg - Exam BMI 33.8 - Constitutional General appearance: Present: average body habitus - EENT Eyes: Present: EOMI ENT: Present: hearing grossly normal - Neck Neck: Present: normal ROM - Respiratory Respiratory: bilateral: CTA - Cardiovascular Rhythm: regular Heart sounds: normal: S1, S2 - Integumentary Integumentary Comment(s): Examination of the left chest wall reveals no evidence of recurrent tumor No evidence of infection The central portion of the breast reconstructed area was granulating well with no evidence of infection, the area was approximately 4.5 cm x 8 mm JEN drain remains in place with no evidence of infection at the drain site Integumentary: Present: normal turgor - Musculoskeletal Musculoskeletal: Present: gait normal - Psychiatric Psychiatric: Present: A&O x's 3, appropriate affect, intact judgment & insight Assessment and Plan Assessment: Impression: 1. Patient doing well at this time status post left breast mastectomy with subpectoral implant insertion and sentinel node biopsy performed on 2. Patient has persistent increased serous output which is decreased from approximately 90 mL per day to pull 50 mL per day the drain remains in place at this time 3. Patient continued to be seen by Dr. Gaytan 4. Awaiting medical oncology consultation Plan: 1. Medical oncology consultation 2. Continue present therapy with drain and incision site 3. Follow with Dr. Gaytan next week 4. Follow here in one month CC: Dr. Mane Earl, Dr. Page Dodd
[2018-12-24 09:13] VITALS: BP 101/49; PULSE 91; RESP 16; TEMP 97.8; BMI 33.8
== END ==
LOC: WWCWWP 08:42
PROVIDERS: ATTEND Surgery
DX: Z53.9 Procedure and treatment not carried out, unspecified reason (principal)

== ENCOUNTER → 2019-01-28 | Outpatient (CLI) | payer BC ==
--- NOTE | 2019-01-28 09:12 | P.PN ---
Subjective Progress Note Date: 01/28/19 Principal diagnosis: Ductal carcinoma in situ left breast Leatha is a 58-year-old white female who is status post left mastectomy with immediate subpectoral reconstruction performed on . This was done for multifocal ductal carcinoma in situ. A sentinel node was performed which was negative. This is a stage 0 cancer. The lesion was ER positive and HER-2 negative. It was a grade 1/2 lesion. She is presently on anastrozole. She has no complaints related to the surgery at this time. She does still have a JEN drain in place which is pain now 50-60 mL of serous fluid per day. She is being followed by Dr. Gaytan from plastic surgery for this. She is scheduled for mid February for removal of her breast architectural administrative assistant and permanent implant placement. Objective - Vital Signs Vital signs: Intake & Output 01/27/19 01/28/19 01/28/19 18:59 06:59 18:59 Weight 86.183 kg - Exam BMI 33.7 - Constitutional General appearance: Present: obese - EENT Eyes: Present: EOMI ENT: Present: hearing grossly normal - Neck Neck: Present: normal ROM - Respiratory Respiratory: bilateral: CTA - Cardiovascular Rhythm: regular Heart sounds: normal: S1, S2 - Musculoskeletal Musculoskeletal: Present: gait normal - Psychiatric Psychiatric: Present: A&O x's 3, appropriate affect, intact judgment & insight - Additional findings Additional findings: Examination of the left chest wall reveals that the incision is clean and dry and completely healed at this time The axillary incision is completely healed with no evidence of any infection, no axillary adenopathy of concern There is no evidence of any recurrent cancer The patient continues to have a JEN drain in place with serous output in this is being followed by Dr. Gaytan Assessment and Plan Assessment: Impression: 1. Patient doing well at this time status post left breast mastectomy with subpectoral implant and sentinel node biopsy performed on 2. Patient has persistent serous output which is approximately 50-[address] Gaytan is going to address this when he does the architectural administrative assistant removal and permanent implant placement 3. Patient presently on Arimidex 4. Patient scheduled for plastic surgical intervention in mid-February Plan: 1. Continue present therapy 2. Follow-up in 4 months 3. Continued care as per Dr. Gaytan and plastic surgical reconstruction 4. To call sooner if any questions or concerns CC: Dr. Mane Earl, Dr. Page Dodd
== END ==
LOC: WWCWWP 08:40
PROVIDERS: ATTEND Surgery
DX: Z53.9 Procedure and treatment not carried out, unspecified reason (principal)

== ENCOUNTER 2019-02-15 11:12 | Day surgery (SDC) | payer BC ==
[2019-02-10 11:53] VITALS: BMI 33.6
[~2019-02-15 11:12] MED LIST changes: +DEXAMETHASONE SOD PHOSPHATE 10 MG/ML 1 ML VIAL IV ONE; -HEPARIN SODIUM,PORCINE 5,000 UNIT/ML 1 ML VIAL SQ ONE; +LACTATED RINGERS 1,000 ML IV SCH; +MIDAZOLAM 2 MG/2 ML VIAL IV PRN; +Pre Op ABX Message 1 EACH MISC MISCELLANE ONE; +SCOPOLAMINE 1.5MG/72HR PATCH TRANSDERM ONE; -ceFAZolin IN SWFI 2 GM/20 ML SYRINGE IVP ONE
[2019-02-15] MEDS ORDERED: LIDOCAINE 1% 20 ML VIAL (10MG/ML) FOR IV START INTRADERMA ONE (11:45)
[2019-02-15] MEDS: ONDANSETRON 4 MG/2 ML VIAL IVP ONE ×2 (11:45→16:23)
[2019-02-15] MEDS ORDERED: ceFAZolin 2 GM in SODIUM CHLORIDE 0.9% 100 ML IVPB ONE (13:30)
[2019-02-15] MEDS ORDERED: ceFAZolin IN SWFI 2 GM/20 ML SYRINGE IVP ONE (13:45)
[2019-02-15] MEDS ORDERED: SUCCINYLCHOLINE CHLORIDE 100 MG/5 ML SYR IV ONE (13:51)
[2019-02-15] MEDS ORDERED: PROPOFOL 10 MG/ML 20 ML VIAL IV ONE (13:51)
[2019-02-15] MEDS ORDERED: DEXAMETHASONE SOD PHOS (MDV) 100 MG/10 ML VIAL ONE (13:51)
[2019-02-15] MEDS ORDERED: LIDOCAINE 1% INJ 10MG/ML (20 ML MDV) ONE (13:51)
[2019-02-15] MEDS ORDERED: fentaNYL (PF) 50 MCG/ML 2 ML AMP ONE (13:51)
[2019-02-15] MEDS ORDERED: MIDAZOLAM 2 MG/2 ML VIAL ONE (13:51)
[2019-02-15] MEDS ORDERED: LACTATED RINGERS 1,000 ML IV ONE (15:40)
[2019-02-15 15:50] VITALS: TEMP 96.9
[2019-02-15] MEDS: HYDROmorphone 0.5 MG/0.5 ML SYRINGE IVP PRN ×4 (15:57→16:20)
[2019-02-15 16:02] VITALS: RESP 16
[2019-02-15] MEDS ORDERED: HYDROcodone/APAP 7.5-325MG 1 EACH TAB PO ONE (17:00)
[2019-02-15 17:05] VITALS: BP 116/74; PULSE 83
--- NOTE | 2019-02-16 08:31 | OP ---
OPERATIVE REPORT DATE OF SURGERY: 02/15/2019. SURGEON: Shant العراقي MD PREOPERATIVE DIAGNOSES: 1. Acquired loss left breast. 2. Personal history of left breast cancer. 3. Personal history of left mastectomy. 4. Acquired deformity of left reconstructed breast. 5. Acquired loss left breast inframammary fold. POSTOPERATIVE DIAGNOSES: 1. Acquired loss left breast. 2. Personal history of breast cancer, left breast. 3. Personal history of mastectomy, left breast. 4. Acquired deformity left reconstructed breast. 5. Acquired loss left inframammary fold. OPERATIVE PROCEDURES: 1. Replace left breast tissue service supervisor with silicone breast implant for breast reconstruction. 2. Revision left reconstructed breast. 3. Reconstruction of left inframammary fold via local advancement flap, 50 cm2. 4. Implantation of reconstructive graft for left breast reconstruction. OPERATIVE INDICATIONS: Patient is a 58-year-old female who has undergone a left mastectomy for treatment of breast cancer with immediate reconstruction via tissue service supervisor technique. Her surgery is somewhat complicated by chronic seroma that has been managed with a drain involving the reconstructive site. The patient has completed expansion and is returning to surgery today for replacement of her tissue service supervisor for silicone breast implant, revision of reconstructed breast, including removal of the associated seroma cavity in tissue as well as reconstruction of inframammary fold that has been lost secondary to the mastectomy and expansion process. The patient understands the potential risks and complications of today's surgery and the breast reconstruction is a staged technique and likely further surgery be required for final result. She has requested I perform the surgery. OPERATIVE PROCEDURE SUMMARY: The patient is seen in the presurgical area, markings made, procedure reviewed. All questions answered. She was transported to the operating room where she was placed supine. General endotracheal anesthesia was established. She was then prepped and draped in usual fashion. The left mastectomy scar was located, transverse elliptical outline was drawn around the scar and then the scar excised in elliptical fashion. A 10 blade scalpel within the scar to Pathology for evaluation. Subcutaneous tissues divided using cauterization. At this point, the seroma cavity was entered. The cavity was located underneath the mastectomy scar in that area, it contained clear serous fluid. The cavity scar layer was excised where possible along the portion of the muscle flap. The seroma cavity cannot be excised, so it was cauterized using Bovie cautery, cauterizing all surfaces of the glistening seroma cavity membrane. Irrigation is performed. Extensive dissection was required to completely excise this seroma as well as release contour irregularities caused by the prior mastectomy and healing process. Once this was completed, a lower transverse incision was made through the muscle flap layer exposing the service supervisor. The service supervisor was removed intact. The expansion cavity appeared normal with no granulation tissue, no exudates, but serous fluid cavity was irrigated. The expansion capsule scar was thick and hypertrophic. A complete capsulotomy incision was made where this layer joined the chest wall and fold. Multiple cruciate incisions through the expansion cavity to release the tightness of the structure inferiorly through the capsulotomy incision and the dissection was performed for recreation inframammary fold via local advancement flap. The flap measured 20 cm transversely by 2.5 cm vertically after skin and subcutaneous tissue flap was dissected with cauterization once ready with advanced in a cephalad fashion secured to periosteal rib tissue. Several interrupted discrete locations 2.0 Vicryl creating inframammary fold and symmetrical location to the right side. Irrigation was performed, hemostasis was optimal. The cavity was sized. Temporary breast implant sizers inserted cavity but ultimately a 600 cc Sizer moderate Plus profile appeared optimal in this temporary Sizer was removed. The cavities were irrigated. Hemostasis was excellent. Gloves were changed. The silicone breast implants opened on the field from the [employer]. Memory gel breast implant, smooth round moderate Plus profile, style 1000 smooth, 600 mL volume, reference #[id number] , serial #[id number]. Device was only handled by surgeon after irrigating with saline and inserted in reconstructive cavity. The muscle flap layer could not be completely approximated over the implant without distortion. Therefore SurgiMend reconstructive graft measuring 10 x 15 cm was opened on the field. The graft was revitalized at room temperature saline. Once ready, the graft was sutured to the inframammary fold region created using interrupted 3-0 Vicryl sutures and then the SurgiMend was oriented and modified inferior sling technique and then advanced over the implant, but deep to the muscle flap tissue. The muscle tip flap tissues in cephalad fashion was advanced inferiorly and the 2 were inset to each other using interrupted and short running 3-0 Vicryl. Complete coverage of the implant was obtained, irrigation was performed, hemostasis was excellent. The skin incision was now closed approximating the deep dermis using inverted interrupted 4-0 Monocryl followed by closure of superficial dermis, epidermis running 5-0 Prolene. Surgical field was cleansed with saline, dried postoperative bandages placed using sterile 1 inch paper tape over suture repair followed by Kerlix squares and then positioned a size 5 mammary support with additional gauze padding. The patient was then awakened from anesthetic, extubated in the operating room, transferred to recovery room in good condition and stable vital signs. ESTIMATED BLOOD LOSS: 50 mL. There were no complications. MMODL / IJN: [id number] /
== END 2019-02-15 17:45 | disposition home or self-care (01) ==
LOC: OR 11:12
PROVIDERS: ATTEND Plastic Surgery
DX: Z90.12 Acquired absence of left breast and nipple (principal); N65.0 Deformity of reconstructed breast; Z85.3 Personal history of malignant neoplasm of breast; M19.90 Unspecified osteoarthritis, unspecified site; Z98.84 Bariatric surgery status; F41.9 Anxiety disorder, unspecified; F32.9 Major depressive disorder, single episode, unspecified; Z82.49 Family history of ischemic heart disease and other diseases of the circulatory system; Z79.899 Other long term (current) drug therapy
CPT/HCPCS: 19380; 11970; 14301; C1789; C1763; J2250; J1100 ×2; J0690; J2405; J2001; J3010; J0330; J2704; J1170; 88305

== ENCOUNTER 2019-04-14 08:41 | Day surgery (SDC) | payer BC ==
[2019-04-14 09:05] VITALS: BP 103/69; PULSE 89; RESP 16; TEMP 98.5
--- NOTE | 2019-04-14 11:50 | US ---
EXAMINATION TYPE: US mass soft tissue chest/back DATE OF EXAM: 04/14/2019 COMPARISON: NONE CLINICAL HISTORY: S/P Left breast mastectomy. Left breast redness with open wound implant is exposed. Drainage procedure not done. Small amount of fluid visualized. No sizable seroma seen. There does appear to be fluid within the surrounding soft tissues. The patien t reports that she believes that the previous seroma may have ruptured over the past couple of days. The patient's skin was red and warm and there is suspicion for a cellulitis. Patient's referring phys ician was contacted. IMPRESSION: Discontinued procedure
== END 2019-04-14 10:18 | disposition home or self-care (01) ==
LOC: RADPROMAIN 08:41
PROVIDERS: ATTEND Radiology Radiation Oncology
DX: M96.843 Postprocedural seroma of a musculoskeletal structure following other procedure (principal); Z90.12 Acquired absence of left breast and nipple; Z96.9 Presence of functional implant, unspecified; Z53.8 Procedure and treatment not carried out for other reasons

== ENCOUNTER → 2019-04-14 | Outpatient (CLI) | payer BC ==
[2019-04-14 10:27] VITALS: BP 105/54; PULSE 80; RESP 16; TEMP 98.2; BMI 33.6
--- NOTE | 2019-04-14 10:44 | P.PN ---
Subjective Progress Note Date: 04/14/19 The patient was recently diagnosed with smoke multifocal ductal carcinoma in situ. Stage 0 disease. Leatha is a 58-year-old white female who is status post left mastectomy with immediate subpectoral reconstruction performed on 10-26-18. The patient postoperatively had persistent seroma drainage and followed with Dr. Gaytan from plastic surgery. The patient's most recent surgery was February. At that time he took out the legal technician, and drain and placed the implant. Since that time the patient has again developed a seroma posterior to the implant and was scheduled for interventional radiology to drain this area. However in the interim the incision has opened and the implant is exposed. She has some seropurulent drainage from the area cultures were performed yesterday. She is not on any antibiotics at this time. The patient states that Thursday night the incision opened approximately half a centimeter and today the incision is open approximately 7 cm and she has now developed some redness of the area. Patient has no fever or chills. The patient is on a limited X she did not have any radiation therapy. Family history: Negative for cancer Hormonal history: Menarche: 14 menopause: 55 This control pills: 2 years Hormones: One-year and progesterone which she stopped approximately a year ago Past surgical history: 1. Kathy-en-Y gastric bypass 2. Modified total hip replacement 3. Bilateral carpal tunnel 4. Right breast mastectomy with sentinel node biopsy, implant placed Social history: Smoking: Negative Alcohol: One time a week Drugs: Negative Medical history: Anxiety and depression Arthritis Review of systems: Constitutional: Reports night sweats at times otherwise negative HEENT: Negative Breasts: As HPI Cardiovascular: Negative Michael: Negative GI: Negative : Negative Musculoskeletal: Arthritis Psychiatric: Anxiety/depression Endocrine: Weight loss 80 pounds after gastric bypass 18 years ago ALLERGIES: Negative Objective - Vital Signs Vital signs: Vital Signs Temp 98.2 F 04/14/19 10:24 Pulse 80 04/14/19 10:24 Resp 16 04/14/19 10:24 BP 105/54 04/14/19 10:24 Pulse Ox 96 04/14/19 10:24 - Constitutional General appearance: Present: obese - EENT Eyes: Present: EOMI ENT: Present: hearing grossly normal - Neck Neck: Present: normal ROM - Respiratory Respiratory: bilateral: CTA - Cardiovascular Rhythm: regular Heart sounds: normal: S1, S2 - Gastrointestinal General gastrointestinal: Present: soft - Integumentary Integumentary Comment(s): Incision left mastectomy site is open approximately 7 cm with an exposed implant There is mild erythema of the skin at this site with some seropurulent drainage, cultures obtained yesterday No axillary adenopathy of concern Right breast was not reexamined - Musculoskeletal Musculoskeletal: Present: gait normal - Psychiatric Psychiatric: Present: A&O x's 3, appropriate affect, intact judgment & insight Assessment and Plan Assessment: Impression: 1. Stage 0 left breast cancer, multifocal ductal carcinoma in situ, status post mastectomy sentinel node biopsy and subpectoral implant placement 2. Subpectoral legal technician removed and the implant placed on February 13 3. Seroma as surgical site, incision open at this time with implant exposed 4. History of anxiety/depression 5. History of arthritis Plan: 1. Will discuss case with Dr. Gaytan plastic surgery 2. Removal of implant with irrigation of wound 3. Await culture results cc: Dr. Dr. Dodd
== END | disposition home or self-care (01) ==
LOC: WWCWWP 10:15
PROVIDERS: ATTEND Surgery
DX: Z53.9 Procedure and treatment not carried out, unspecified reason (principal)

== ENCOUNTER 2019-05-24 07:09 | Day surgery (SDC) | payer BC ==
[2019-05-19 13:11] VITALS: BMI 34.7
[~2019-05-24 07:09] MED LIST changes: +HYDROmorphone 0.5 MG/0.5 ML SYRINGE IVP PRN; +LIDOCAINE 1% 20 ML VIAL (10MG/ML) FOR IV START INTRADERMA PRN; +ONDANSETRON 4 MG/2 ML VIAL IVP ONE; -Pre Op ABX Message 1 EACH MISC MISCELLANE ONE
[2019-05-24] MEDS ORDERED: LACTATED RINGERS 1,000 ML IV ONE ×2 (07:45→10:48)
[2019-05-24] MEDS ORDERED: KETOROLAC 30 MG/ML 1 ML VIAL ONE (09:07)
[2019-05-24] MEDS ORDERED: LIDOCAINE 1% INJ 10MG/ML (20 ML MDV) ONE (09:07)
[2019-05-24] MEDS ORDERED: GLYCOPYRROLATE 0.2 MG/ML 2 ML VIAL ONE (09:07)
[2019-05-24] MEDS ORDERED: ROCURONIUM BROMIDE 10 MG/ML 10 ML VIAL IV ONE (09:07)
[2019-05-24] MEDS ORDERED: HYDROmorphone (PF) 1 MG/ML ONE (09:07)
[2019-05-24] MEDS ORDERED: MIDAZOLAM 2 MG/2 ML VIAL ONE (09:07)
[2019-05-24] MEDS ORDERED: PROPOFOL 10 MG/ML 20 ML VIAL IV ONE (09:07)
[2019-05-24] MEDS ORDERED: NEOSTIGMINE 1 MG/ML 10 ML VIAL ONE (09:07)
[2019-05-24] MEDS ORDERED: fentaNYL (PF) 50 MCG/ML 2 ML AMP ONE (09:07)
[2019-05-24] MEDS: LACTATED RINGERS 1,000 ML IV ONE (10:48)
[2019-05-24 10:55] VITALS: TEMP 97
[2019-05-24 11:02] VITALS: RESP 16
--- NOTE | 2019-05-24 11:29 | OP ---
OPERATIVE REPORT DATE OF SURGERY: May 24, 2019. SURGEON: Shant العراقي MD. PREOPERATIVE DIAGNOSES: 1. Open left mastectomy wound. 2. Personal history of breast cancer. POSTOPERATIVE DIAGNOSES: 1. Open left mastectomy wound. 2. Personal history of breast cancer. OPERATIVE PROCEDURE: Excision open left mastectomy wound with closure via local advancement flap, 135 square centimeters. OPERATIVE INDICATIONS: Patient is a 59-year-old female who has undergone mastectomy for breast cancer in October 2018 with immediate reconstruction via tissue lpn cma. The patient's tissue lpn cma process was complicated by chronic seroma and her drain could not be removed. She was taken back to surgery in February 2019. The surgery revealed a chronic seroma cavity, it was completely excised. She underwent replacement of her lpn cma with silicone breast implant and initially did well following the surgery, but ultimately started to accumulate fluid which led to an open wound requiring implant removal. She has gone through a period of open wound management. Her wound has been decreasing in size with decreasing drainage. She is returning to surgery today for excision of this large open wound with closure. The patient understands her potential risks and complications and also that she will require drain during the postoperative periods to hopefully prevent recurrent seroma. The patient has requested I perform the surgery. OPERATIVE PROCEDURE SUMMARY: The patient was seen in the presurgical area. Markings made. Procedure reviewed. All questions answered. She was transported to the operating room where she was placed in supine position. Following induction of general endotracheal anesthesia, the patient was prepped and draped in usual fashion. The left mastectomy wound was outlined with a skin marker including the open wound surfaces and the heavily indurated scar tissues adjacent to the wound edge. The wound was now sharply excised making a full-thickness skin incision with 10 blade scalpel followed by cauterization and excised all soft tissue components of the wound circumferentially, that included off the chest wall. The excised wound tissue was sent to pathology for permanent evaluation. Hemostasis was maintained with cautery during the excision and afterwards. Irrigation was performed with pulsatile irrigation unit with several liters of fluid. Cultures were obtained of the wound bed and sent to microbiology for Gram stain, aerobic, anaerobic culture and sensitivity. All tissue that remained appeared healthy. Hemostasis was excellent. The wound measured 15 x 9 cm. Advancement flap was constructed based on the patient's cephalad oriented tissues. The patient's muscle flap of prior surgery that was intact involving pectoralis major muscle was from scar layers by cauterization and tacked down to the chest wall using interrupted horizontal mattress sutures of 0 Vicryl. A 19 round Zev drain was now inserted surgical field above this layer, but deep to the skin, subcutaneous tissue layer and brought out a separate stab incision in the left anterior lateral chest wall and sutured in place with 2-0 Prolene. The skin and subcutaneous tissue flap was then elevated in cephalad fashion as described by cauterization. Additional tissue required excision to eliminate dog-ear contour irregularities. This additional tissue when excised was sent with the original specimen to pathology for permanent analysis. The flap was advanced in a caudad fashion and then inset at the deep dermal layer using inverted interrupted 4-0 Monocryl followed by closure of the superficial dermis and epidermis with short running 5-0 Prolene sutures. The drain was connected to close bulb suction and patent. Postoperative bandage placed using Adaptic, 4x4s, Kerlix squares, secured with 3M Medipore tape then positioned a size 3 mammary support with additional Kerlix and ABD gauze padding placed anterior for pressure effect. The patient was then awakened from her anesthetic, extubated, and transferred to the recovery room. The estimated blood loss was 100 mL. There were no complications. MMODL / IJN: [id number] /
[2019-05-24] MEDS ORDERED: HYDROcodone/APAP 10-325MG 1 EACH TAB PO ONE (12:00)
[2019-05-24 12:18] VITALS: BP 118/71; PULSE 81
== END 2019-05-24 12:51 | disposition home or self-care (01) ==
LOC: OR 07:09
PROVIDERS: ATTEND Plastic Surgery
DX: Z48.1 Encounter for planned postprocedural wound closure (principal); Z85.3 Personal history of malignant neoplasm of breast; Z90.12 Acquired absence of left breast and nipple; F41.9 Anxiety disorder, unspecified; F32.9 Major depressive disorder, single episode, unspecified; Z98.84 Bariatric surgery status; E66.9 Obesity, unspecified; Z79.899 Other long term (current) drug therapy
CPT/HCPCS: 14301; 14302 ×3; 88304; 87070; 87205; 87075; 87077; 87186; J2250; J1100; J2710; J0690; J2405; J2001; J3010; J1885; J1170 ×2; J2704

== ENCOUNTER → 2019-06-17 | Outpatient (CLI) | payer BC ==
[2019-06-17 08:41] VITALS: BP 109/68; PULSE 78; RESP 18; TEMP 98.3; BMI 33.6
--- NOTE | 2019-06-17 09:07 | P.PN ---
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 She had immediate subpectoral reconstruction after which she developed a chronic serma. In February of 2019 she was taken back to surgery where the cavity was excised and a silicone breast implant was placed. She again began to accumulate fluid and this resulted in removal of the implant. She returned to surgery on 05-24-19 for closure of her would with a local advancement flap. The patient at this time has a JEN drain in place and is being a less than 30 mL per day for approximately the last week. She has no fever or chills. She is on arimidex. Her last bilateral mammogram was in May 2018. She will be due for a right breast mammogram at this time. Family history: Negative for cancer Hormonal history: Menarche: 14 menopause: 55 This control pills: 2 years Hormones: One-year and progesterone which she stopped approximately a year ago Past surgical history: 1. Kathy-en-Y gastric bypass 2. Modified total hip replacement 3. Bilateral carpal tunnel 4. Right breast mastectomy with sentinel node biopsy, implant placed 5. Removal of branch coordinator implant placement and excision of seroma cavity 6. advancement flap for left chest wall wound Social history: Smoking: Negative Alcohol: One time a week Drugs: Negative Medical history: Anxiety and depression Arthritis Review of systems: Constitutional: Reports night sweats at times otherwise negative HEENT: Negative Breasts: As HPI Cardiovascular: Negative Michael: Negative GI: Negative : Negative Musculoskeletal: Arthritis Psychiatric: Anxiety/depression Endocrine: Weight loss 80 pounds after gastric bypass 18 years ago ALLERGIES: Negative Objective - Vital Signs Vital signs: Vital Signs Temp 98.3 F 06/17/19 08:35 Pulse 78 06/17/19 08:35 Resp 18 06/17/19 08:35 BP 109/68 06/17/19 08:35 Pulse Ox 96 06/17/19 08:35 Intake & Output 06/16/19 06/17/19 06/17/19 18:59 06:59 18:59 Weight 86.183 kg - Exam BMI 33.7 - Constitutional General appearance: Present: obese - EENT Eyes: Present: EOMI ENT: Present: hearing grossly normal - Neck Neck: Present: normal ROM - Respiratory Respiratory: bilateral: CTA - Cardiovascular Rhythm: regular Heart sounds: normal: S1, S2 - Gastrointestinal General gastrointestinal: Present: soft - Integumentary Integumentary Comment(s): Incision left chest wall clean and dry no evidence of recurrent disease no axillary adenopathy of concern JEN drain in place less than 30 mL per day for approximately a week JEN drain to be removed today Integumentary: Present: normal turgor - Musculoskeletal Musculoskeletal: Present: gait normal - Psychiatric Psychiatric: Present: A&O x's 3, appropriate affect, intact judgment & insight - Additional findings Additional findings: breast exam: right breast: Multiple positional exam no dominant mass or notches of concern, fibrocystic breast changes Right axilla: No adenopathy of concern Left chest wall: Incision clean and dry no evidence of infection or seroma JEN drain in place output serous Assessment and Plan Assessment: Impression: 1. Patient status post left breast mastectomy for multifocal ductal carcinoma in situ, she is presently on a when Demadex no evidence of recurrent disease 2. 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 Gaytan for an advancement flap for closure of the wound 3. JEN drainage at this time is less than 30 mL daily for approximately a week and JEN drain to be removed output is serous 4. Fibrocystic breast changes right breast 6. Patient due for a right breast mammogram 7.BMI 33.7 8. Anxiety/depression 9. Arthritis Plan: 1. DC JEN drain 2. Follow-up Dr. Gaytan next week 3. Right breast mammogram with follow-up after the mammogram 4. Continue Arimidex and follow up with medical oncology Cc: Dr. Dodd
== END | disposition home or self-care (01) ==
LOC: WWCWWP 08:31
PROVIDERS: ATTEND Surgery
DX: Z53.9 Procedure and treatment not carried out, unspecified reason (principal)

== ENCOUNTER → 2019-06-27 | Outpatient (CLI) | payer BC ==
--- NOTE | 2019-06-27 19:58 | BD ---
EXAMINATION TYPE: Axial Bone Density DATE OF EXAM: 06/27/2019 COMPARISON: NONE CLINICAL HISTORY: 59-year-old female with disorder of bone and structure Height: 62.5 IN Weight: 191 LBS RISK FACTORS HISTORY OF: Surgery to Hip(right): YES When: 2009 RT HIP REPLACEMENT Active: YES Postmenopausal woman: AGE 52 Take estrogen and/or progesterone medications: NOT NOW How long: TOOK FOR 6 MONTHS MEDICATIONS: Additional Medications: CALCIUM, VIT D, ARIMIDEX, CYMBALTA, LAMOTRIGINE, ANTIDEPRESSANT, SINGULAIR, Z ERTEC Additional History: BREAST CANCER EXAM MEASUREMENTS: Bone mineral densitometry was performed using the [employer] System. Bone mineral density as measured about the Lumbar spine is: ----- L1-L4(G/cm2): 1.260 T Score Values are as follows: ----- L2: 1.3 ----- L3: 1.1 ----- L4: 0.0 ----- L1-L4: 0.7 Bone mineral density BASELINE Bone mineral density about the L hip (g/cm2): 0.778 T Score values are as follows: -----L Neck: -1.9 -----L Total: -0.7 Bone mineral density BASELINE IMPRESSION: Osteopenia (T Score between -2.5 and -1). There is slightly increased risk of fracture and the patient may be considered for treatment. Re-Screen 2-5 years. NOTE: T-SCORE=SD OF THE YOUNG ADULT MEAN.
== END | disposition home or self-care (01) ==
LOC: RADBDWWP 07:19
PROVIDERS: ATTEND Internal Medicine Hematology & Oncology
DX: M85.80 Other specified disorders of bone density and structure, unspecified site (principal); C50.919 Malignant neoplasm of unspecified site of unspecified female breast
CPT/HCPCS: 77080

== ENCOUNTER → 2019-09-07 | Outpatient (CLI) | payer BC ==
--- NOTE | 2019-09-07 08:03 | MM ---
Reason for exam: additional evaluation requested from prior study. Last mammogram was performed 1 year and 3 months ago. History: Patient has history of breast cancer at age 58. Mastectomy of the left breast, October 26, 2018. Malignant MG stereo VAD BX addl LT of the left breast, September 03, 2018. Malignant MG stereo VAD BX LT of the left breast, September 03, 2018. Physical Findings: Nurse did not find any significant physical abnormalities on exam. MG Diagnostic Mammo RT w CAD CC and MLO view(s) were taken of the right breast. Prior study comparison: May 26, 2018, mammogram. May 07, 2018, mammogram. April 28, 2017, mammogram. There are scattered fibroglandular densities. Finding: There are typically benign dystrophic calcifications in the right breast. No suspicious abnormality. These results were verbally communicated with the patient and result sheet given to the patient on 09/07/19. ASSESSMENT: Benign, BI-RAD 2 RECOMMENDATION: Follow-up diagnostic mammogram of the right breast in 1 year.
== END | disposition home or self-care (01) ==
LOC: RADMAMWWP 07:05
PROVIDERS: ATTEND Surgery
DX: Z08 Encounter for follow-up examination after completed treatment for malignant neoplasm (principal); Z85.3 Personal history of malignant neoplasm of breast; Z90.12 Acquired absence of left breast and nipple
CPT/HCPCS: 77065

== ENCOUNTER → 2019-09-15 | Outpatient (CLI) | payer BC ==
[2019-09-15 07:58] VITALS: BP 117/79; PULSE 84; RESP 18; TEMP 98.1
--- NOTE | 2019-09-15 08:21 | P.PN ---
Subjective Progress Note Date: 09/15/19 Principal diagnosis: survelience DCIS left breast mastectomy Leatha is a 59 year old white female status post left mastectomy for a multifocal DCIS in October of 2018. Subpectoral implant placement for reconstruction was placed. However, she developed a chronic seroma. In February 2019 she was taken back to surgery where the cavity was excised and a silicone breast implant was placed. She again began to accumulate fluid and this resulted in removal of the implant. She returned to surgery in May 2019 for closure of her wound with local advancement flap. The patient had a recent right breast mammogram on 09-07-19. This was a BIRADS 2. She has no complaints of any lumps or masses in her right breast. She had a bone density done on Jun [address] Reyna in July. He recommended continue on Arimidex. ROS: HEENT: negative lungs: negative heart: neagative GI: negative : negative, postmenopausal muscle skeletal: mild osteopenia following with DR. Reyna psych: depression neurologic: negative hematologic: none Objective - Vital Signs Vital signs: Vital Signs Temp 98.1 F 09/15/19 07:55 Pulse 84 09/15/19 07:55 Resp 18 09/15/19 07:55 BP 117/79 09/15/19 07:55 Pulse Ox 98 09/15/19 07:55 Intake & Output 09/14/19 09/15/19 09/15/19 18:59 06:59 18:59 Weight 86.183 kg - Exam BMI 33.7 - Constitutional General appearance: Present: obese - EENT Eyes: Present: EOMI ENT: Present: hearing grossly normal - Neck Neck: Present: normal ROM - Respiratory Respiratory: bilateral: CTA - Cardiovascular Rhythm: regular Heart sounds: normal: S1, S2 - Gastrointestinal General gastrointestinal: Present: soft - Integumentary Integumentary: Present: normal turgor - Musculoskeletal Musculoskeletal: Present: gait normal - Psychiatric Psychiatric: Present: A&O x's 3, appropriate affect - Additional findings Additional findings: breast exam: Breasts: Multiple positional exam no dominant masses or nodules of concern Right axilla: No adenopathy of concern Left chest wall: Incision clean and dry well-healed no evidence of recurrent disease and left chest wall, no evidence of infection no evidence of seroma Assessment and Plan Assessment: Impression: 1. status post left bresat mastectomy for DCIS October 2018 2. patient on Arimidex 3. mild osteopenia being followed by Dr. Reyna Plan: 1. follow up in 6 months Encounter: 20 minutes, 50% of time spent on counselling or planning
== END | disposition home or self-care (01) ==
LOC: WWCWWP 07:42
PROVIDERS: ATTEND Surgery
DX: Z53.9 Procedure and treatment not carried out, unspecified reason (principal)

== ENCOUNTER → 2020-03-15 | Outpatient (CLI) | payer BC ==
[2020-03-15 08:55] VITALS: BP 120/68; PULSE 77; RESP 18; TEMP 98.2
--- NOTE | 2020-03-15 09:14 | P.PN ---
Subjective Progress Note Date: 03/15/20 Principal diagnosis: stage 0 left breast cancer Nayely is a 60-year-old white female status post left mastectomy for multifocal DCIS in October 2018. Subpectoral implant placement for reconstruction was placed. However, she developed a chronic seroma. In February 2019 she was taken back to surgery where the cavity was excised and the silicone breast implant was placed. She again accumulated fluid and this resulted in removal of the implant. She returned to surgery in May 2019 for closure of wound with local advancement flap. The patient had a right breast mammogram in September 2019. This was BIRADS 2. She has no complaints at this time. She stopped the aromatase inhibitor she was on secondary to pain in her hands. Review of systems: HEENT: Negative Lungs: Negative Heart: Negative GI: Negative : Negative postmenopausal Musculoskeletal: Joint pain in her hands, mild osteopenia following with Dr. Story Psych: Depression on an antidepressant Neurologic: Negative Hematologic: Negative Objective - Vital Signs Vital signs: Vital Signs Temp 98.2 F 03/15/20 08:50 Pulse 77 03/15/20 08:50 Resp 18 03/15/20 08:50 BP 120/68 03/15/20 08:50 Pulse Ox 96 03/15/20 08:50 Intake & Output 03/14/20 03/15/20 03/15/20 18:59 06:59 18:59 Weight 88.451 kg - Exam BMI 34.5 - Constitutional General appearance: Present: average body habitus - EENT Eyes: Present: EOMI ENT: Present: hearing grossly normal - Neck Neck: Present: normal ROM - Respiratory Respiratory: bilateral: CTA - Cardiovascular Rhythm: regular Heart sounds: normal: S1, S2 - Gastrointestinal General gastrointestinal: Present: normal bowel sounds, soft - Musculoskeletal Musculoskeletal: Present: gait normal - Psychiatric Psychiatric: Present: A&O x's 3, appropriate affect, intact judgment & insight - Additional findings Additional findings: Breast exam: BRA 38C inspection: ptosis grade 2/3 palpation: right breast: no masses of concern on multiple positional exam, fibrocystic changes Right axilla: No adenopathy of concern Left chest wall: No evidence of recurrent cancer Left axilla: No adenopathy of concern Assessment and Plan Assessment: Impression: 1. Stage 0 left breast cancer status post mastectomy 2. Recent September 2019 mammogram right breast benign BIRADS 2 3. Patient stopped aromatase inhibitor secondary to joint pain, still following with Dr. Reyna 4. Mild osteopenia on a bone density study of June 2019 Plan: 1. Repeat examination here in 6 months with right breast mammogram at that time 2. Follow with primary care doctor regarding mild osteopenia 3. Continue to follow with Dr. Reyna We have discussed the right breast and consideration of a right breast reduction secondary to asymmetry versus a right breast mastectomy. At this time there is no oncologic reason that this needs to be done. She is going to be followed closely. CC: Dr. Dodd encounter 20 minutes, > 50% of time in planning and counselling
== END | disposition home or self-care (01) ==
LOC: WWCWWP 08:41
PROVIDERS: ATTEND Surgery
DX: Z53.9 Procedure and treatment not carried out, unspecified reason (principal)

== ENCOUNTER → 2020-09-12 | Outpatient (CLI) | payer BC ==
--- NOTE | 2020-09-12 11:56 | MM ---
Reason for exam: additional evaluation requested from prior study. Last mammogram was performed 1 year ago. History: Patient is postmenopausal and has history of breast cancer at age 58. Mastectomy of the left breast, October 26, 2018. Malignant MG stereo VAD BX addl LT of the left breast, September 03, 2018. Malignant MG stereo VAD BX LT of the left breast, September 03, 2018. Benign excisional biopsy of the right breast, 1999. Physical Findings: Nurse did not find any significant physical abnormalities on exam. MG 3D Diag Mammo W/Cad RT CC and MLO view(s) were taken of the right breast. Prior study comparison: September 07, 2019, right breast MG diagnostic mammo RT w CAD. May 07, 2018, mammogram. April 28, 2017, mammogram. No significant new findings when compared with previous films. These results were verbally communicated with the patient and result sheet given to the patient on 09/12/20. ASSESSMENT: Benign, BI-RAD 2 RECOMMENDATION: Follow-up diagnostic mammogram of the right breast in 1 year.
== END | disposition home or self-care (01) ==
LOC: RADMAMWWP 10:52
PROVIDERS: ATTEND Surgery
DX: Z08 Encounter for follow-up examination after completed treatment for malignant neoplasm (principal); Z85.3 Personal history of malignant neoplasm of breast
CPT/HCPCS: 77061; 77065

== ENCOUNTER → 2020-09-20 | Outpatient (CLI) | payer BC ==
[2020-09-20 08:56] VITALS: BP 123/83; PULSE 80; RESP 16; TEMP 98
--- NOTE | 2020-09-20 09:04 | P.PN ---
Subjective Progress Note Date: 09/20/20 Principal diagnosis: stage 0 left breast cancer The patient is a 60-year-old white female who had a bilateral screening mammogram on 8318. This was noted to have some new regional calcifications in the central left breast and diagnostic left breast mammogram was recommended. This was performed and [address]. On this film there was noted to be new regional calcification extending approximately over 7 cm in the left central slight inferior aspect of the breast seen best on lateral view and slightly outer aspect of the breast on CC view. This extends nearly up to the nipple with heterogeneous morphology of the calcifications. The patient has not noted any masses in her breast. She has no complaints of any nipple discharge or changes. She has no history of any trauma or infection to the breast. 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 A subpectoral implant placement for reconstruction was placed. However, she developed a chronic seroma. In February 2019 she was taken back to surgery with the cavity was excised and the silicone breast implant was placed. She again accumulated fluid and this resulted in removal of the implant. She will return to surgery in May 2019 for closure of the with local advancement flap. The patient had been treated with an aromatase inhibitor which she stopped secondary to pain in her hands. [place] [address] this is benign BIRADS 2. Family complaints related to her right breast. There is no complaints related to the left chest wall at this time. Family History: 1. maternal aunt: colon 2. maternal grandfather: lung Hormonal History: menarche: 14 : 3, 3 children, first at 23, breast fed: yes menopause: 55 BCP: 2 years hormones: 1 year on progesten stopped this summer Past Surgical History: 1. Kathy-en-Y gastric bypass 2. Right modified total hip replacement 3. Bilateral carpal tunnel 4. Right breast biopsy 5. Left breast mastectomy with implant placement 6. Removal of implants Past Medical History: 1. Depression and anxiety Social History: smoke: none alcohol: 1 x week/sine drugs: none - Constitutional Constitutional: Reports sweats - EENT Eyes: denies blurred vision, denies photophobia Ears: deny: decreased hearing, tinnitus Ears, nose, mouth and throat: Denies headache, Denies sore throat - Breasts Breasts: bilateral: as per HPI - Cardiovascular Cardiovascular: Denies chest pain, Denies shortness of breath - Respiratory Respiratory: Denies cough - Gastrointestinal Gastrointestinal: Denies abdominal pain, Denies diarrhea, Denies nausea, Denies vomiting - Genitourinary (Female) Genitourinary: Denies dysuria, Denies hematuria - Menstruation Menstruation: Reports postmenopausal - Musculoskeletal Comment: arthritis Musculoskeletal: Denies myalgias - Integumentary Integumentary: Denies pruritus, Denies rash - Neurological Neurological: Denies numbness, Denies weakness - Psychiatric Psychiatric: Reports anxiety, Reports depression - Endocrine Comment: lost weight 80 pounds after gastric bypass 18 years ago Endocrine: Reports weight change, Denies fatigue - Hematologic/Lymphatic Comment: none - Allergic/Immunologic Allergic/Immunologic: Reports seasonal allergies Objective - Vital Signs Vital signs: Intake & Output 09/19/20 09/20/20 09/20/20 18:59 06:59 18:59 Weight 95.254 kg - Exam BMI 37.2 - Constitutional General appearance: Present: obese - EENT Eyes: Present: EOMI ENT: Present: hearing grossly normal - Neck Neck: Present: normal ROM - Respiratory Respiratory: bilateral: CTA - Cardiovascular Rhythm: regular Heart sounds: normal: S1, S2 - Gastrointestinal General gastrointestinal: Present: normal bowel sounds, soft - Musculoskeletal Musculoskeletal: Present: gait normal - Psychiatric Psychiatric: Present: A&O x's 3, appropriate affect, intact judgment & insight - Additional findings Additional findings: Breast examination: Prior: 38C Inspection: right breast grade 2/3 ptosis right breast, no evidence of recurrence left chest wall Palpation: Right breast: Multi-positional exam no dominant masses or nodules of concern Right axilla: No adenopathy of concern Left chest wall: No evidence of recurrent cancer Assessment and Plan Assessment: Impression: 1. Grade 0 left breast cancer, multifocal, status post mastectomy no evidence of recurrence 2. Asymmetry secondary to left breast mastectomy 3. Anxiety depression Plan: 1. Repeat physician exam in 6 months 2. Repeat right breast mammogram in 1 year 3. Call if any questions or concerns 4. We have discussed a symmetry procedure secondary to the left breast mastectomy at this time she is going to consider that, she is uncertain as to whether she wants to have reconstruction on the left attempted again Cc: Dr. Dodd Encounter approximately 15 minutes and greater than 50% of time in planning and counseling.
== END | disposition home or self-care (01) ==
LOC: WWCWWP 08:41
PROVIDERS: ATTEND Surgery
DX: Z53.9 Procedure and treatment not carried out, unspecified reason (principal)

== ENCOUNTER → 2021-04-04 | Outpatient (CLI) | payer BC ==
[2021-04-04 09:29] VITALS: BP 120/79; PULSE 85; RESP 18; TEMP 98.5
--- NOTE | 2021-04-04 09:35 | P.PN ---
Subjective Progress Note Date: 04/04/21 Principal diagnosis: Stage 0 left breast cancer/status post mastectomy stage 0 left breast cancer The patient is a 61-year-old white female who had a bilateral screening mammogram on 8318. This was noted to have some new regional calcifications in the central left breast and diagnostic left breast mammogram [place]. [place] [address]. On this film there was noted to be new regional calcification extending approximately over 7 cm in the left central slight inferior aspect of the breast seen best on lateral view and slightly outer aspect of the breast on CC view. This extends nearly up to the nipple with heterogeneous morphology of the calcifications. The patient has not noted any masses in her breast. She has no complaints of any nipple discharge or changes. She has no history of any trauma or infection to the breast. 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 A subpectoral press manager was placed for reconstruction. However, she developed a chronic seroma. In February 2019 she was taken back to surgery with the cavity was excised and the press manager was removed and a silicone breast implant was placed . She again accumulated fluid and this resulted in removal of the implant. She will return to surgery in May 2019 for closure of the with local advancement flap. The patient had been treated with an aromatase inhibitor which she stopped secondary to pain in her hands. [place] [address] this is benign BIRADS 2. Family complaints related to her right breast. There is no complaints related to the left chest wall at this time. She is not complaining of any lumps masses or nodules in her right breast. Patient is again considering reconstruction of the left breast. Family History: 1. maternal aunt: colon 2. maternal grandfather: lung Hormonal History: menarche: 14 : 3, 3 children, first at 23, breast fed: yes menopause: 55 BCP: 2 years hormones: 1 year on progesten stopped this summer Past Surgical History: 1. Kathy-en-Y gastric bypass 2. Right modified total hip replacement 3. Bilateral carpal tunnel 4. Right breast biopsy 5. Left breast mastectomy with press manager placement 6. Removal of implant 7. closure of the left chest wall Past Medical History: 1. Depression and anxiety Social History: smoke: none alcohol: 1 x week/sine drugs: none - Constitutional Constitutional: Reports sweats - EENT Eyes: denies blurred vision, denies photophobia Ears: deny: decreased hearing, tinnitus Ears, nose, mouth and throat: Denies headache, Denies sore throat - Breasts Breasts: bilateral: as per HPI - Cardiovascular Cardiovascular: Denies chest pain, Denies shortness of breath - Respiratory Respiratory: Denies cough - Gastrointestinal Gastrointestinal: Denies abdominal pain, Denies diarrhea, Denies nausea, Denies vomiting - Genitourinary (Female) Genitourinary: Denies dysuria, Denies hematuria - Menstruation Menstruation: Reports postmenopausal - Musculoskeletal Comment: arthritis Musculoskeletal: Denies myalgias - Integumentary Integumentary: Denies pruritus, Denies rash - Neurological Neurological: Denies numbness, Denies weakness - Psychiatric Psychiatric: Reports anxiety, Reports depression - Endocrine Comment: lost weight 80 pounds after gastric bypass 18 years ago; interested in losing weight again at this time Endocrine: Reports weight change, Denies fatigue - Hematologic/Lymphatic Comment: none - Allergic/Immunologic Allergic/Immunologic: Reports seasonal allergies Objective - Constitutional General appearance: Present: cooperative - EENT Eyes: Present: EOMI ENT: Present: hearing grossly normal - Neck Neck: Present: normal ROM - Respiratory Respiratory: bilateral: CTA - Cardiovascular Rhythm: regular Heart sounds: normal: S1, S2 - Gastrointestinal General gastrointestinal: Present: soft - Integumentary Integumentary: Present: normal turgor - Musculoskeletal Musculoskeletal: Present: gait normal - Psychiatric Psychiatric: Present: A&O x's 3, appropriate affect, intact judgment & insight - Additional findings Additional findings: Breast examination: Block: 40 2C Inspection: Well-healed scar left chest wall status post mastectomy/grade 3 ptosis right breast Palpation: Right breast: Multi-positional exam no dominant masses or nodules of concern; ungual infection under right breast Right axilla: No adenopathy of concern Left chest wall: No evidence of recurrent disease Left axilla: No adenopathy of concern Assessment and Plan Assessment: Impression: 1. No evidence of recurrent cancer at this time 2. Left chest wall incision well healed 3. Asymmetry secondary to prior left mastectomy 4. Fungal infection under right breast Plan: 1. Nystatin cream under right breast 2. Follow-up right breast mammogram in September with physician exam at that time 3. Patient is interested in reconstruction of the left breast at this time. Secondary to the fact that she has had seroma formation with implants on 2 occasions would consider a TRAM flap. CC: Dr. Dodd
== END ==
LOC: WWCWWP 08:40
PROVIDERS: ATTEND Surgery
DX: B48.8 Other specified mycoses (principal); F32.9 Major depressive disorder, single episode, unspecified; F41.9 Anxiety disorder, unspecified; Z90.12 Acquired absence of left breast and nipple; Z85.3 Personal history of malignant neoplasm of breast; Z79.899 Other long term (current) drug therapy

== ENCOUNTER → 2021-09-18 | Outpatient (CLI) | payer BC ==
--- NOTE | 2021-09-18 09:04 | MM ---
Reason for exam: additional evaluation requested from prior study. Last mammogram was performed 1 year ago. History: Patient is postmenopausal and has history of breast cancer at age 58. Mastectomy of the left breast, October 26, 2018. Malignant MG stereo VAD BX addl LT of the left breast, September 03, 2018. Malignant MG stereo VAD BX LT of the left breast, September 03, 2018. Benign excisional biopsy of the right breast, 1999. Physical Findings: Nurse did not find any significant physical abnormalities on exam. MG 3D Diag Mammo W/Cad RT CC and MLO view(s) were taken of the right breast. Prior study comparison: September 12, 2020, right breast MG 3d diag mammo w/cad RT. September 07, 2019, right breast MG diagnostic mammo RT w CAD. Benign appearing calcifications in the right breast. There is chronic nodularity in the right breast, stable. No significant new findings when compared with previous films. These results were verbally communicated with the patient and result sheet given to the patient on 09/18/21. ASSESSMENT: Benign, BI-RAD 2 RECOMMENDATION: Follow-up diagnostic mammogram of the right breast in 1 year.
== END | disposition home or self-care (01) ==
LOC: RADMAMWWP 07:39
PROVIDERS: ATTEND Surgery
DX: R92.1 Mammographic calcification found on diagnostic imaging of breast (principal); R92.8 Other abnormal and inconclusive findings on diagnostic imaging of breast; Z85.3 Personal history of malignant neoplasm of breast; Z78.0 Asymptomatic menopausal state
CPT/HCPCS: 77061; 77065

== ENCOUNTER → 2021-10-10 | Outpatient (CLI) | payer BC ==
--- NOTE | 2021-10-10 09:22 | P.PN ---
Subjective Progress Note Date: 10/10/21 Principal diagnosis: Stage 0 left breast cancer 2017 Stage 0 left breast cancer/status post mastectomy stage 0 left breast cancer The patient is a 61-year-old white female who had a bilateral screening mammogram on 8318. This was noted to have some new regional calcifications in the central left breast and diagnostic left breast mammogram [place]. [place] [address]. On this film there was noted to be new regional calcification extending approximately over 7 cm in the left central slight inferior aspect of the breast seen best on lateral view and slightly outer aspect of the breast on CC view. This extended nearly up to the nipple with heterogeneous morphology of the calcifications. The patient had not noted any masses in her breast. She had no complaints of any nipple discharge or changes. She had no history of any trauma or infection to the breast. 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 A subpectoral product delivery specialist was placed for reconstruction. However, she developed a chronic seroma. In February 2019 she was taken back to surgery and the cavity was excised and the product delivery specialist was removed and a silicone breast implant was placed . She again accumulated fluid and this resulted in removal of the implant. She returned to surgery in May 2019 for closure of the defect with local advancement flap. The patient had been treated with an aromatase inhibitor which she stopped secondary to pain in her hands. She had a right breast mammogram performed on this is benign BIRADS 2. She has no complaints related to her right breast. There is no complaints related to the left chest wall at this time. She is not complaining of any lumps masses or nodules in her right breast. Patient is again considering reconstruction of the left breast. Family History: 1. maternal aunt: colon 2. maternal grandfather: lung Hormonal History: menarche: 14 : 3, 3 children, first at 23, breast fed: yes menopause: 55 BCP: 2 years hormones: 1 year on progesten stopped this summer Past Surgical History: 1. Kathy-en-Y gastric bypass 2. Right modified total hip replacement 3. Bilateral carpal tunnel 4. Right breast biopsy 5. Left breast mastectomy with product delivery specialist placement 6. Removal of implant 7. closure of the left chest wall Past Medical History: 1. Depression and anxiety 2. 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 transit department clerk will have a chest x-ray later this week - Gastrointestinal Gastrointestinal: Denies abdominal pain, Denies diarrhea, Denies nausea, Denies vomiting - Genitourinary (Female) Genitourinary: Denies dysuria, Denies hematuria - Menstruation Menstruation: Reports postmenopausal - Musculoskeletal Comment: arthritis Musculoskeletal: Denies myalgias - Integumentary Integumentary: Denies pruritus, Denies rash - Neurological Neurological: Denies numbness, Denies weakness - Psychiatric Psychiatric: Reports anxiety, Reports depression - Endocrine Comment: lost weight 80 pounds after gastric bypass 18 years ago; interested in losing weight again at this time Endocrine: Reports weight change, Denies fatigue - Hematologic/Lymphatic Comment: none - Allergic/Immunologic Allergic/Immunologic: Reports seasonal allergies Objective - Constitutional General appearance: Present: cooperative - EENT Eyes: Present: EOMI ENT: Present: hearing grossly normal - Neck Neck: Present: normal ROM - Respiratory Respiratory: bilateral: CTA - Cardiovascular Rhythm: regular Heart sounds: normal: S1, S2 - Gastrointestinal General gastrointestinal: Present: soft - Integumentary Integumentary: Present: normal turgor - Musculoskeletal Musculoskeletal: Present: gait normal - Psychiatric Psychiatric: Present: A&O x's 3, appropriate affect, intact judgment & insight - Additional findings Additional findings: Breast Exam: Inspection: Patient status post left mastectomy no evidence of recurrent disease Grade 2/3 ptosis right breast Palpation: Right breast: No dominant masses or nodules of concern a multi-positional exam Right axilla: No adenopathy of concern Left chest wall: No evidence of recurrent disease Left axilla: No adenopathy of concern Assessment and Plan Assessment: Impression: 1. Patient status post left mastectomy stage 0 left breast cancer 2017 no evidence of recurrent disease 2. Patient is not taking any anti-hormone therapy at this time, she developed hand pain on the antiestrogen and opted not to take it 3. She is considering reconstruction on the left side at a future date 4. Right breast mammogram September 2021 benign BIRADS 2 Plan: 1. Repeat right breast mammogram 1 year 2. Follow-up 6 months for clinical exam 3. Follow-up sooner if questions or concerns CC: Dr. Dodd
[2021-10-10 14:54] VITALS: BP 117/78; PULSE 90; RESP 18; TEMP 98.9
== END ==
LOC: WWCWWP 08:38
PROVIDERS: ATTEND Surgery
DX: Z08 Encounter for follow-up examination after completed treatment for malignant neoplasm (principal); F32.A Depression, unspecified; F41.9 Anxiety disorder, unspecified; Z85.3 Personal history of malignant neoplasm of breast; Z90.12 Acquired absence of left breast and nipple; Z79.899 Other long term (current) drug therapy

== ENCOUNTER → 2021-10-10 | Outpatient (CLI) | payer BC ==
--- NOTE | 2021-10-10 18:02 | XR ---
EXAMINATION TYPE: XR chest 2V DATE OF EXAM: 10/10/2021 COMPARISON: NONE HISTORY: Cough TECHNIQUE: Frontal and lateral views of the chest are obtained. FINDINGS: There is moderate patchy opacity in the left mid to lower lung. No pleural effusion, or pn eumothorax seen. The cardiac silhouette size is within normal limits. The osseous structures are i ntact. IMPRESSION: Left-sided infiltrates.
== END | disposition home or self-care (01) ==
LOC: RADXRMAIN 17:46
PROVIDERS: ATTEND Allergy & Immunology
DX: R91.8 Other nonspecific abnormal finding of lung field (principal)
CPT/HCPCS: 71046

== ENCOUNTER → 2021-11-13 | Outpatient (CLI) | payer BC ==
--- NOTE | 2021-11-13 15:37 | XR ---
EXAMINATION TYPE: XR chest 2V DATE OF EXAM: 11/13/2021 COMPARISON: Chest x-ray 10/10/2021 HISTORY: R05.2, R 91.8 TECHNIQUE: Frontal and lateral views of the chest are obtained. FINDINGS: There is no focal air space opacity, pleural effusion, or pneumothorax seen. The cardiac silhouette size is within normal limits. The osseous structures are intact. IMPRESSION: No acute cardiopulmonary process. Previous identified pneumonia has resolved.
[2021-11-13 23:11] LABS: Basophils # (A) 0.04 X 10*3/uL (0.00-0.10); Basophils % (A) 0.6 %; Eosinophils # (A) 0.13 X 10*3/uL (0.04-0.35); Eosinophils % (A) 1.9 %; HCT 38.6 % (37.2-46.3); HGB 12.4 g/dL (12.0-15.0); Immature Grans, Automated 0.3 %; Lymphocytes # (A) 1.99 X 10*3/uL (0.90-5.00); Lymphocytes % (A) 29.2 %; MCH 30.2 pg (27.0-32.0); MCHC 32.1 g/dL (32.0-37.0); MCV 94.1 fL (80.0-97.0); Mean Platelet Volume 10.2 fL (9.5-12.2); Monocytes # (A) 0.69 X 10*3/uL (0.20-1.00); Monocytes % (A) 10.1 %; NRBC Per 100 WBC 0 /100 WBCS (0.0-0.0); Neutrophils # (A) 3.95 X 10*3/uL (1.80-7.70); Neutrophils % (A) 57.9 %; Platelet Count 284 X 10*3/uL (140-440); RDW 13.3 % (11.5-14.5); WBC 6.82 X 10*3/uL (4.50-10.00)
== END | disposition home or self-care (01) ==
LOC: LABWHC1 14:59
PROVIDERS: ATTEND Family Medicine
DX: R05.2 Subacute cough (principal); R91.8 Other nonspecific abnormal finding of lung field
CPT/HCPCS: 36415; 71046; 85025

== ENCOUNTER → 2021-12-10 | Outpatient (CLI) | payer BC ==
[2021-12-10 16:20] LABS: Partial Thromboplastin Time 24.1 sec (22.0-30.0); Prothrombin Time 10.4 sec (9.0-12.0)
[2021-12-10 23:28] LABS: Appearance,Urine Clear (Clear); Bilirubin,Urine Negative (Negative); Blood,Urine Negative (Negative); Color,Urine Yellow (Yellow); Ketones,Urine Negative (Negative); Leukocyte Esterase,Urine Negative (Negative); Nitrite,Urine Negative (Negative); PH, Urine 5.5 (5.0-8.0); Protein,Urine Negative (Negative); Specific Gravity,Urine 1.011 (1.001-1.030); Urobilinogen,Urine 0.2 (0.2,1.0)
[2021-12-10 23:59] LABS: HCT 38.9 % (37.2-46.3); HGB 12.5 g/dL (12.0-15.0); MCH 29.8 pg (27.0-32.0); MCHC 32.1 g/dL (32.0-37.0); MCV 92.6 fL (80.0-97.0); Mean Platelet Volume 10.2 fL (9.5-12.2); NRBC Per 100 WBC 0 /100 WBCS (0.0-0.0); Platelet Count 309 X 10*3/uL (140-440); RDW 13.2 % (11.5-14.5); WBC 5.68 X 10*3/uL (4.50-10.00)
[2021-12-11 01:37] LABS: ALT 27 U/L (8-44); AST 22 U/L (13-35); African American GFR (CKD) 105.3 (60.0-200.0); Albumin 4.6 g/dL (3.8-4.9); Albumin/Globulin Ratio 2.35 (1.60-3.17); Alkaline Phosphatase 64 U/L (41-126); BUN/Creat Ratio 19.56 Ratio (12.00-20.00); Blood Urea Nitrogen 14.1 mg/dL (9.0-27.0); Calcium 9.3 mg/dL (8.7-10.3); Carbon Dioxide 21.1 mmol/L (20.0-27.5); Chloride 101 mmol/L (96-109); Glucose 104 mg/dL (70-110); Non-African American GFR(CKD) 90.9 (60.0-200.0); Potassium 4.3 mmol/L (3.5-5.5); Sodium 135 mmol/L (135-145); Total Bilirubin <0.15 mg/dL (0.30-1.20); Total Protein 6.6 g/dL (6.2-8.2)
== END | disposition home or self-care (01) ==
LOC: LABPAT 14:47
PROVIDERS: ATTEND Orthopaedic Surgery
DX: Z01.812 Encounter for preprocedural laboratory examination (principal); M16.12 Unilateral primary osteoarthritis, left hip
CPT/HCPCS: 80053; 81003; 85027; 85610; 85730; 87070; 93005

== ENCOUNTER 2021-12-17 08:00 | Day surgery (SDC) | payer BC ==
[2021-12-13 10:30] VITALS: BMI 37.2
[~2021-12-17 08:00] MED LIST changes: +ACETAMINOPHEN TAB 500 MG TAB PO PRN; -DEXAMETHASONE SOD PHOSPHATE 10 MG/ML 1 ML VIAL IV ONE; +DEXAMETHASONE SOD PHOSPHATE 4 MG/ML 1 ML VIAL IV ONE; +GABAPENTIN 300 MG CAP PO PRN; -HYDROmorphone 0.5 MG/0.5 ML SYRINGE IVP PRN; -LACTATED RINGERS 1,000 ML IV SCH; -LIDOCAINE 1% 20 ML VIAL (10MG/ML) FOR IV START INTRADERMA PRN; +MELOXICAM 7.5 MG TAB PO PRN; -MIDAZOLAM 2 MG/2 ML VIAL IV PRN; -SCOPOLAMINE 1.5MG/72HR PATCH TRANSDERM ONE; +TRANEXAMIC ACID IN NACL,ISO-OS 1,000 MG in SALINE 1 100ML.BAG IVPB PRN
[2021-12-17] MEDS: LACTATED RINGERS 1,000 ML IV SCH ×2 (08:44→12:54)
[2021-12-17] MEDS ORDERED: NALOXONE 0.4 MG/ML 1 ML VIAL IV PRN (09:04)
[2021-12-17] MEDS ORDERED: HYDROmorphone 0.5 MG/0.5 ML SYRINGE IVP PRN (09:04)
[2021-12-17] MEDS ORDERED: ONDANSETRON 4 MG/2 ML VIAL IVP PRN (09:04)
[2021-12-17] MEDS ORDERED: MAGNESIUM HYDROXIDE 2,400 MG/10 ML CUP PO PRN (09:04)
[2021-12-17] MEDS ORDERED: HYDROmorphone 0.2 MG/1 ML SYRINGE IVP PRN (09:04)
[2021-12-17] MEDS ORDERED: HYDROcodone/APAP 7.5-325MG 1 EACH TAB PO PRN (09:06)
[2021-12-17] MEDS ORDERED: ROPIVACAINE 5 MG/ML 30 ML VIAL MISCELLANE ONE ×2 (09:11→09:52)
[2021-12-17] MEDS ORDERED: LIDOCAINE 1% INJ 10MG/ML (20 ML MDV) ONE (09:12)
[2021-12-17] MEDS ORDERED: PROPOFOL 10 MG/ML 20 ML VIAL IV ONE (09:12)
[2021-12-17] MEDS ORDERED: KETAMINE 10 MG/ML 20 ML VIAL ONE (09:12)
[2021-12-17] MEDS ORDERED: ePHEDrine 50 MG/ML 1 ML VIAL ONE (09:12)
[2021-12-17] MEDS ORDERED: TRANEXAMIC ACID IN NACL,ISO-OS 1,000 MG/100 ML BAG ONE (09:12)
[2021-12-17] MEDS ORDERED: MIDAZOLAM 2 MG/2 ML VIAL ONE (09:12)
[2021-12-17] MEDS ORDERED: PHENYLEPHRINE-0.9% NACL SYG 1,000 MCG/10 ML SYRINGE ONE (09:12)
[2021-12-17] MEDS ORDERED: fentaNYL (PF) 50 MCG/ML 2 ML AMP ONE (09:12)
[2021-12-17] MEDS ORDERED: ceFAZolin 1,000 MG in SODIUM CHLORIDE 0.9% 1,000 ML IRRIGATION ONE (09:44)
--- NOTE | 2021-12-17 10:32 | P.OP ---
Date of Procedure: 12/17/21 Preoperative Diagnosis: Severe osteoarthritis left hip Postoperative Diagnosis: Severe osteoarthritis left hip Procedure(s) Performed: Left total hip arthroplasty with a direct anterior approach Implants: [employer] Polarstem standard size 3 [employer] R3, 3 hole hemispherical acetabular shell, 48 mm [employer] Reflection 6.5 mm cancellus screw, 20 mm 2 [employer] R3, XLPE 20 acetabular liner [employer] Oxinium femoral head 32 m, +0 All components were press-fit. The articulation is Oxinium on polyethylene. Anesthesia: spinal Surgeon: Kirt Beauchamp Imaging Services Director #1: Tracy Atkins Estimated Blood Loss (ml): 150 Pathology: other (Femoral head) Condition: stable Disposition: PACU Indications for Procedure: After failure of conservative treatment we discussed the surgical and nonsurgical treatment options at length. Patient wishes to proceed with a total hip arthroplasty with a direct anterior approach. Complications specific to this procedure were discussed at length, including but not limited to infection, leg length discrepancy, dislocation, nerve injury, and fracture. Covid-19 was also discussed at length with the patient, and they are aware of the current policies and procedures. The patient was given the option of delaying surgery, but they elect to proceed knowing these risks. Patient is aware of all these complications and informed consent was obtained Operative Findings: The operative findings are consistent with severe osteoarthritis of the left hip Description of Procedure: Patient was seen and evaluated in the preoperative area and the consent was reviewed. The operative site was marked with a skin marker. The patient was then brought to the operating room and given preoperative antibiotics i ntravenously. 1 g of Tranexamic acid was also given intravenously. A spinal anesthetic was administered by the anesthesia department. The patient was then placed on the [place] table with the bony prominences well-padded. The hip area was then prepped with a ChloraPrep solution and draped in the usual sterile fashion. A universal timeout was then performed, which confirmed the patient's name, s urgical site, ALLERGIES, and procedure being performed on the consent. Next the incision site was located at 1 cm distal and 2 cm lateral to the anterior superior iliac spine. The skin and subcutaneous tissues were sharply incised. Incision was carefully dissected down to the fascia overlying the tensor fascia jeanette muscle. This fascia was then incised in line with the incision. Care was taken to stay laterally in order to avoid injuring the lateral femoral cutaneous nerve. Next, using blunt finger dissection, the tensor fascia jeanette muscle was dissected off its investing fascia. The muscle was then carefully retracted laterally with a cobra retractor over the lateral neck of the femur. Next, the circumflex vessels were identified and cauterized using the AquaMantis device. The anterior hip capsule was then exposed. The capsule was then opened and an inverted T fashion. Cobra retractors were then placed intracapsularly. The retractors were maintained intracapsular throughout the procedure. The proximal femur was then visualized. Fluoroscopic x-rays were then taken in order to evaluate the preoperative leg lengths. A small amount of traction was placed on the leg. The femoral neck was then osteotomized at the appropriate level above the lesser trochanter. A small wedge of bone was then removed from the remaining femoral head. Next, using a corkscrew the femoral head was removed from the acetabulum. On gross visual inspection, the femoral head had complete loss of articular cartilage and multiple periarticular osteophytes. The femoral head was then measured. Attention was then turned to the acetabulum. The acetabulum was exposed and any remaining labrum was excised. Sequential reaming of the acetabulum was performed using fluoroscopic guidance until there was a good bed of bleeding cancellus bone. When the appropriate size was reached, a trial was then placed. The position and fit of the trial was checked with fluoroscopy. The trial was then removed. Then, using fluoroscopic guidance, the final implant was impacted at 20 of anteversion and 40 of abduction, and fully seated in the acetabulum. 2 screws were then placed in the acetabulum. Again fluoroscopy was used to check position of the screws. Next, the liner was then impacted, with a 20 elevated liner located in the anterior superior quadrant. Component locking was confirmed. Attention was then directed to the femur. With the aid of the [place] table, the femur was externally rotated to approximately 130, extended, and adducted under the opposite leg. A side hook was then placed under the proximal femur, and the side hook elevator was used to elevate the proximal femur while releasing the capsule. Retractors were then placed. A capsular release was performed, as wel l as a release of the conjoined tendon, which afforded excellent visualization of the proximal femur. Next, a box osteotome was used to lateralize the proximal femur. A winery cellar hand was then used to locate the femoral canal. Sequential broaching was then performed with appropriate size which afforded excellent fixation in the proximal femur. A trial was then placed with appropriate head and neck, and the hip was gently reduced with the aid of the [place] table. Fluoroscopy was then used to check position of the components, as well as to ensure equal leg lengths. The hip was then gently dislocated and the trials were then removed. Final implants were then impacted and the hip was again reduced. Final fluoroscopic x-rays confirmed that the components were in anatomic position, as well as equal leg lengths. The hip was also taken through range of motion, and found to be stable. The hip was then copiously irrigated with antibiotic solution with pulsatile lavage. The hip was then irrigated with Irrisept solution. The soft tissues were then injected with a ropivacaine solution. A second dose of 1 g of Tranexamic acid was also given intravenously. The fascia was then closed with 2-0 strata fix suture. The subcutaneous tissue was closed with 3-0 Vicryl. The subcuticular tissue was closed with 3-0 strata fix suture. The skin was then closed with Exofin skin glue. After the glue and dried, and Optifoam silver impregnated dressing was applied. The patient was then transferred to the recovery room in stable condition. The client services assistant JOHAN Lopez was required due to the complexity of surgery, and the need for skilled rn medical surgical for positioning, draping, exposure, retraction, and closure of the wound.
[2021-12-17] MEDS ORDERED: LACTATED RINGERS 1,000 ML IV ONE (10:38)
--- NOTE | 2021-12-17 10:41 | FL ---
EXAMINATION TYPE: FL guidance operating room DATE OF EXAM: 12/17/2021 HISTORY: Fluoroscopy time 37 seconds of fluoroscopy provided. IMPRESSION: 1. Fluoroscopy time.
--- NOTE | 2021-12-17 10:42 | XR ---
EXAMINATION TYPE: XR Hip Limited LT DATE OF EXAM: 12/17/2021 COMPARISON: NONE HISTORY: Postop TECHNIQUE: One view submitted. FINDINGS: There is postsurgical change in near anatomic alignment. There is soft tissue edema and emphysema. IMPRESSION: 1. Postoperative change. Appears in near-anatomic alignment.
[2021-12-17] MEDS: HYDROmorphone 0.5 MG/0.5 ML SYRINGE IVP PRN ×2 (11:51→12:22)
[2021-12-17] MEDS: SODIUM CHLORIDE 0.9% 1,000 ML IV SCH ×2 (12:53→17:53)
[2021-12-17] MEDS: HYDROmorphone 1 MG/ML 1 ML SYRINGE IVP PRN ×2 (14:22→19:58)
--- NOTE | 2021-12-17 14:55 | P.CONS ---
History of Present Illness - Reason for Consult Consult date: 12/17/21 - History of Present Illness This is a pleasant 61-year-old female who underwent a left total hip arthroplasty earlier today. Currently reports some discomfort to the left hip she is receiving Dilaudid and Nicholson for pain management. Patient follows with Dr. Page Dodd in the primary care setting. Past medical history is significant for osteoarthritis, left breast cancer with left mastectomy and silicone gel left breast implant, bariatric surgery with a Kathy-en-Y bypass, anxiety/depression, never smoker. Home medications include Lamictal, Cymbalta, Seroquel, vitamins. Preoperative labs unremarkable. Patient is afebrile, heart rate 71 sinus rhythm, blood pressure 143/77, 97% room air. REVIEW OF SYSTEMS: CONSTITUTIONAL: No fever, no malaise, no fatigue. HEENT: No recent visual problems or hearing problems. Denied any sore throat. CARDIOVASCULAR: No chest pain, orthopnea, PND, no palpitations, no syncope. PULMONARY: No shortness of breath, no cough, no hemoptysis. GASTROINTESTINAL: No diarrhea, no nausea, no vomiting, no abdominal pain. NEUROLOGICAL: No headaches, no weakness, no numbness. HEMATOLOGICAL: Denies any bleeding or petechiae. GENITOURINARY: Denies any burning micturition, frequency, or urgency. MUSCULOSKELETAL/RHEUMATOLOGICAL: Denies any joint pain, swelling, or any muscle pain. ENDOCRINE: Denies any polyuria or polydipsia. The rest of the 14-point review of systems is negative. PHYSICAL EXAMINATION: GENERAL: The patient is alert and oriented x3, not in any acute distress. Well developed, well nourished. HEENT: Pupils are round and equally reacting to light. EOMI. No scleral icterus. No conjunctival pallor. Normocephalic, atraumatic. No pharyngeal erythema. No thyromegaly. CARDIOVASCULAR: S1 and S2 present. No murmurs, rubs, or gallops. PULMONARY: Chest is clear to auscultation, no wheezing or crackles. ABDOMEN: Soft, nontender, nondistended, normoactive bowel sounds. No palpable organomegaly. MUSCULOSKELETAL: No joint swelling or deformity. EXTREMITIES: No cyanosis, clubbing, or pedal edema. NEUROLOGICAL: Gross neurological examination did not reveal any focal deficits. SKIN: No rashes. Postsurgical left hip dressing in tact Assessment and Plan Assessment Osteoarthritis status post left hip total arthroplasty today History left breast cancer status post left mastectomy Anxiety/depression resume home medications, seroquel can prolong QT in pt taking zofran, will get an EKG for baseline QT interval and monitor closely Obesity GI Prophylaxis DVT Prophylaxis as per primary Full Code Plan Resume appropriate home medications Pain management per primary BMP in AM Thank you for this consultation we will continue to follow along this hospitalization. Past Medical History Past Medical History: Cancer, Osteoarthritis (OA) Additional Past Medical History / Comment(s): left breast Ca, History of Any Multi-Drug Resistant Organisms: None Reported Year Discovered:: 1998 MDRO Source:: VAGINAL Past Surgical History: Bariatric Surgery, Breast Surgery, Joint Replacement, Orthopedic Surgery Additional Past Surgical History / Comment(s): right breast biopsy-benign,right hip replacement. Kathy-En-Y gastric bypass,left hip labrum cuff repair. 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 and silicone gel left breast implant, COLONOSCOPY, ant TLH Past Anesthesia/Blood Transfusion Reactions: No Reported Reaction Past Psychological History: Anxiety, Depression Additional Psychological History / Comment(s): controlled with meds Smoking Status: Never smoker Past Alcohol Use History: None Reported Additional Past Alcohol Use History / Comment(s): Never smoker Past Drug Use History: None Reported - Past Family History Father Family Medical History: Coronary Artery Disease (CAD), Myocardial Infarction (VT) Mother Family Medical History: No Reported History Additional Family Medical History / Comment(s): depression,anxiety Medications and Allergies Home Medications Medication Instructions Recorded Confirmed Type DULoxetine HCL [Cymbalta] 60 mg PO QAM 07/30/18 12/17/21 History Ergocalciferol (Vitamin D2) 50,000 unit PO Q30D 07/30/18 12/17/21 History [Vitamin D2] lamoTRIgine [LaMICtal] 100 mg PO QAM 07/30/18 12/17/21 History DULoxetine HCL [Cymbalta] 30 mg PO HS 08/16/18 12/17/21 History QUEtiapine FUMARATE [SEROquel] 200 mg PO HS 08/16/18 12/17/21 History Ferrous Sulfate [Feosol] 325 mg PO QAM 02/10/19 12/17/21 History Multivitamins, Thera [Multivitamin 1 tab PO QAM 02/10/19 12/17/21 History (formulary)] Ibuprofen [Motrin] 800 mg PO DAILY PRN 04/14/19 12/17/21 History Turmeric Root Extract [Turmeric] 500 mg PO QAM 09/20/20 12/17/21 History Azelastine/Fluticasone 1 spray EA NOSTRIL DAILY 10/10/21 12/17/21 History [Azelastin-Flutic 137-50Mcg Spr] Fluticasone Nasal Hernando [Flonase 1 spray EA NOSTRIL BID 10/10/21 12/17/21 History Nasal Hernando] Calcium Carbonate/Vitamin D3 1 each PO DAILY 12/13/21 12/17/21 History [Calcium 500-Vit D3 15 Mcg (600 Iu)] Aspirin 325 mg PO BID #60 tab 12/17/21 Rx HYDROcodone/APAP 7.5-325MG [Nicholson 1 - 2 tab PO Q6H PRN #32 tab 12/17/21 Rx 7.5-325] Ondansetron Odt [Zofran Odt] 1 tab PO Q8HR PRN #10 tab 12/17/21 Rx Sennosides [Senokot] 2 tab PO DAILY PRN #60 tablet 12/17/21 Rx Allergies Allergy/AdvReac Type Severity Reaction Status Date / Time codeine AdvReac Nausea & Verified 12/17/21 08:24 Vomiting Physical Exam Vitals: Vital Signs Temp Pulse Pulse Resp BP BP Pulse Ox 12/17/21 13:13 97.8 F 71 143/77 97 12/17/21 12:29 75 16 134/70 100 12/17/21 11:54 63 16 120/68 100 12/17/21 11:39 67 18 112/61 100 12/17/21 11:24 60 20 108/62 100 12/17/21 11:09 61 18 104/59 100 12/17/21 10:54 96.8 F L 68 16 94/55 99 12/17/21 08:34 97.1 F L 77 16 126/60 96 Intake and Output 12/16/21 12/17/21 12/17/21 22:59 06:59 14:59 Intake Total 1601 Output Total 150 Balance 1451 Intake: IV 1601 Output: Estimated Blood Loss 150 Other: Weight 93.4 kg Assessment and Plan Time with Patient: Less than 30
[2021-12-17] MEDS: HYDROcodone/APAP 7.5-325MG 1 EACH TAB PO PRN ×2 (16:08→22:32)
[2021-12-17] MEDS ORDERED: DULoxetine HCL 30 MG CAPSULE.DR PO SCH (21:00)
[2021-12-17] MEDS ORDERED: SENNOSIDES-DOCUSATE SODIUM 1 EACH TAB PO SCH (21:00)
[2021-12-17] MEDS ORDERED: QUEtiapine 200 MG TAB PO SCH (21:00)
[2021-12-17] MEDS: ASPIRIN 325 MG TAB PO SCH (22:32)
[2021-12-17] MEDS: FLUTICASONE 50MCG/SPRAY NASAL 16GM EA NOSTRIL SCH (22:33)
[2021-12-18] MEDS: HYDROmorphone 1 MG/ML 1 ML SYRINGE IVP PRN ×2 (01:37→08:19)
[2021-12-18] MEDS: HYDROcodone/APAP 7.5-325MG 1 EACH TAB PO PRN ×2 (05:07→11:13)
[2021-12-18 06:55] VITALS: BP 100/63; PULSE 74; RESP 18; TEMP 98
[2021-12-18] MEDS ORDERED: lamoTRIgine 100 MG TAB PO SCH (09:00)
[2021-12-18] MEDS ORDERED: DULoxetine HCL 60 MG CAPSULE.DR PO SCH (09:00)
[2021-12-18] MEDS ORDERED: MELOXICAM 7.5 MG TAB PO SCH (09:00)
[2021-12-18 09:27] LABS: Basophils # (A) 0.03 X 10*3/uL (0.00-0.10); Basophils % (A) 0.4 %; Eosinophils % (A) 1.5 %; HCT 32.9 % (37.2-46.3); HGB 10.4 g/dL (12.0-15.0); Immature Grans, Automated 0.4 %; Lymphocytes # (A) 1.95 X 10*3/uL (0.90-5.00); Lymphocytes % (A) 29.1 %; MCH 29.6 pg (27.0-32.0); MCHC 31.6 g/dL (32.0-37.0); MCV 93.7 fL (80.0-97.0); Mean Platelet Volume 10.4 fL (9.5-12.2); Monocytes # (A) 0.87 X 10*3/uL (0.20-1.00); NRBC Per 100 WBC 0 /100 WBCS (0.0-0.0); Neutrophils # (A) 3.72 X 10*3/uL (1.80-7.70); Neutrophils % (A) 55.6 %; Platelet Count 224 X 10*3/uL (140-440); RBC 3.51 X 10*6/uL (4.10-5.20); RDW 13.3 % (11.5-14.5)
--- NOTE | 2021-12-18 09:40 | P.DS ---
Providers Expected date of discharge: 12/18/21 Attending physician: Kirt Beauchamp Consults: 12/17/21 09:04 Consult Physician Routine Consulting Provider: Gen Grider Consult Reason/Comments: medical management Do you want consulting provider notified?: Yes Primary care physician: Scooby Dodd [facility] Course: This is a 61-year-old female who has been followed in our office by Dr. Beauchamp for continued complaints of left hip pain due to left hip osteoarthritis. Treatment options were discussed, and patient elected to undergo a left total hip arthroplasty. Patient was seen pre-operatively by Dr. Dodd and cleared for surgery. Patient underwent a left total hip arthroplasty on 12/17/21. The procedure was performed without complication or sequelae. The patient is doing fairly well postoperatively. Vital signs and labs are stable on postoperative day #1. Patient was examined bedside today. She is up to the bedside chair. Patient states she is overall doing well and the pain in his left hip is well- controlled. She has been ambulating with a walker with minimal assistance. She has worked with physical therapy this morning. Patient is tolerating her diet well. She is voiding without issues. Patient is comfortable being discharged home today. Patient denies chest pain, shortness of breath, nausea, vomiting, fevers, chills. On examination, the patient is sitting up in the bedside chair in no apparent distress. She is alert and orientated 3. On inspection of the left hip, there is a clean, dry, intact surgical dressing in place. There is no bleeding or drainage the dressing. Patient has good strength and ROM of the left ankle and toes. Motor and sensory function is intact of the left lower extremity. The left lower extremity is warm and well perfused. Calf is soft and non-tender to palpation. Patient is discharged home with home health in good condition, pending medical clearance. Patient will follow-up with Dr. Beauchamp in the office in 2 weeks. Please see med rec for accurate list of discharge medication. Plan - Discharge Summary Discharge Rx Participant: Yes New Discharge Prescriptions: New Aspirin 325 mg PO BID #60 tab HYDROcodone/APAP 7.5-325MG [Lindsay 7.5-325] 1 - 2 tab PO Q6H PRN #32 tab PRN Reason: Pain Sennosides [Senokot] 2 tab PO DAILY PRN #60 tablet PRN Reason: Constipation Ondansetron Odt [Zofran Odt] 1 tab PO Q8HR PRN #10 tab PRN Reason: Nausea No Action DULoxetine HCL [Cymbalta] 60 mg PO QAM lamoTRIgine [LaMICtal] 100 mg PO QAM Ergocalciferol (Vitamin D2) [Vitamin D2] 50,000 unit PO Q30D DULoxetine HCL [Cymbalta] 30 mg PO HS QUEtiapine FUMARATE [SEROquel] 200 mg PO HS Multivitamins, Thera [Multivitamin (formulary)] 1 tab PO QAM Ferrous Sulfate [Feosol] 325 mg PO QAM Ibuprofen [Motrin] 800 mg PO DAILY PRN PRN Reason: Pain Turmeric Root Extract [Turmeric] 500 mg PO QAM Fluticasone Nasal [place] [Flonase Nasal [place]] 1 spray EA NOSTRIL BID Azelastine/Fluticasone [Azelastin-Flutic 137-50Mcg Spr] 1 spray EA NOSTRIL DAILY Calcium Carbonate/Vitamin D3 [Calcium 500-Vit D3 15 Mcg (600 Iu)] 1 each PO DAILY Discharge Medication List DULoxetine HCL [Cymbalta] 60 mg PO QAM 07/30/18 [History] Ergocalciferol (Vitamin D2) [Vitamin D2] 50,000 unit PO Q30D 07/30/18 [History] lamoTRIgine [LaMICtal] 100 mg PO QAM 07/30/18 [History] DULoxetine HCL [Cymbalta] 30 mg PO HS 08/16/18 [History] QUEtiapine FUMARATE [SEROquel] 200 mg PO HS 08/16/18 [History] Ferrous Sulfate [Feosol] 325 mg PO QAM 02/10/19 [History] Multivitamins, Thera [Multivitamin (formulary)] 1 tab PO QAM 02/10/19 [History] Ibuprofen [Motrin] 800 mg PO DAILY PRN 04/14/19 [History] Turmeric Root Extract [Turmeric] 500 mg PO QAM 09/20/20 [History] Azelastine/Fluticasone [Azelastin-Flutic 137-50Mcg Spr] 1 spray EA NOSTRIL DAILY 10/10/21 [History] Fluticasone Nasal [place] [Flonase Nasal [place]] 1 spray EA NOSTRIL BID 10/10/21 [History] Calcium Carbonate/Vitamin D3 [Calcium 500-Vit D3 15 Mcg (600 Iu)] 1 each PO DAILY 12/13/21 [History] Aspirin 325 mg PO BID #60 tab 12/17/21 [Rx] HYDROcodone/APAP 7.5-325MG [Lindsay 7.5-325] 1 - 2 tab PO Q6H PRN #32 tab 12/17/21 [Rx] Ondansetron Odt [Zofran Odt] 1 tab PO Q8HR PRN #10 tab 12/17/21 [Rx] Sennosides [Senokot] 2 tab PO DAILY PRN #60 tablet 12/17/21 [Rx] Follow up Appointment(s)/Referral(s): [facility], [NON-STAFF] - ([facility] will call you to schedule your in home physical therapy. ) Kirt Beauchamp DO [Doctor of Osteopathic Medicine] - 2 Weeks Activity/Diet/Wound Care/Special Instructions: Weightbearing as tolerated with walker. Leave dressing intact. Dressing may be removed by home care nurse or by patient in 7 days. Then change dressing twice daily until follow up. May shower with initial dressing intact and after removal. If dressing become saturated, please remove. Please take aspirin 325mg twice daily for 30 days to prevent blood clots. Recommend use of compression stockings daily until follow up to help prevent swelling and blood clots. May remove at night before sleeping. Please follow-up with [facility] in 2 weeks and call with any questions or concerns, . Discharge Disposition: HOME WITH HOME HEALTH SERVICES
[2021-12-18 09:59] LABS: African American GFR (CKD) 117.1 (60.0-200.0); BUN/Creat Ratio 17.46 Ratio (12.00-20.00); Blood Urea Nitrogen 9.9 mg/dL (9.0-27.0); Calcium 8.8 mg/dL (8.7-10.3); Carbon Dioxide 26.7 mmol/L (20.0-27.5)
[2021-12-18] MEDS: ASPIRIN 325 MG TAB PO SCH (10:28)
[2021-12-18] MEDS: FLUTICASONE 50MCG/SPRAY NASAL 16GM EA NOSTRIL SCH (10:29)
--- NOTE | 2021-12-18 23:31 | P.PN ---
Subjective Progress Note Date: 12/18/21 This is a pleasant 61-year-old female who underwent a left total hip arthroplasty earlier today. Currently reports some discomfort to the left hip she is receiving Dilaudid and Keldron for pain management. Patient follows with Dr. Page Dodd in the primary care setting. Past medical history is signi ficant for osteoarthritis, left breast cancer with left mastectomy and silicone gel left breast implant, bariatric surgery with a Kathy-en-Y bypass, anxiety/depression, never smoker. Home medications include Lamictal, Cymbalta, Seroquel, vitamins. Preoperative labs unremarkable. Patient is afebrile, heart rate 71 sinus rhythm, blood pressure 143/77, 97% room air. 12/18/2021 Patient is evaluated today sitting up in the chair, states she worked with PT and did well and will be discharged today. Patient had a rough night as she states she did not get any pain medication although she had requested it and was in quite a bit of pain this morning until she was finally able to receive medication. Otherwise she also states she did not sleep well. Labs today were stable, hemoglobin dropped slightly to 10.4. She is using incentive spirometer as recommended and doing well with it. She is afebrile, heart rate 74, blood pressure on the softer side at 100/63, she is not currently taking any blood pressure medications at home. Denies dizziness or lightheadedness. Encourage to check blood pressure daily at home. She is 97% on room air. Medically patient is stable for discharge today. REVIEW OF SYSTEMS: CONSTITUTIONAL: No fever, no malaise, no fatigue. HEENT: No recent visual problems or hearing problems. Denied any sore throat. CARDIOVASCULAR: No chest pain, orthopnea, PND, no palpitations, no syncope. PULMONARY: No shortness of breath, no cough, no hemoptysis. GASTROINTESTINAL: No diarrhea, no nausea, no vomiting, no abdominal pain. MUSCULOSKELETAL/RHEUMATOLOGICAL: Reports mild tenderness to medial left thigh as well as some numbness sensation to left thigh All inpatient medications reviewed and are appropriate. PHYSICAL EXAMINATION: GENERAL: The patient is alert and oriented x3, not in any acute distress. Well developed, well nourished. HEENT: Pupils are round and equally reacting to light. EOMI. No scleral icterus. No conjunctival pallor. Normocephalic, atraumatic. No pharyngeal erythema. No thyromegaly. CARDIOVASCULAR: S1 and S2 present. No murmurs, rubs, or gallops. PULMONARY: Chest is clear to auscultation, no wheezing or crackles. ABDOMEN: Soft, nontender, nondistended, normoactive bowel sounds. No palpable organomegaly. MUSCULOSKELETAL: No joint swelling or deformity. EXTREMITIES: No cyanosis, clubbing, or pedal edema. Peripheral pulses +2 NEUROLOGICAL: Gross neurological examination did not reveal any focal deficits. SKIN: No rashes. Postsurgical left hip dressing in tact no drainage noted Assessment and Plan Assessment Osteoarthritis status post left hip total arthroplasty POD #1 History left breast cancer status post left mastectomy Anxiety/depression resume home medications Obesity GI Prophylaxis DVT Prophylaxis as per primary Full Code Plan Can continue all home medications on discharge Pain management per primary Discharged on aspirin 325 BID for DVT prophylaxis as per primary Patient cleared medically for discharge with home PT Thank you kindly for this consultation. The impression and plan of care has been dictated by Zainab Smith, Nurse Practitioner as directed. Dr. Marni MD I have performed a history and physical examination and medical decision making of this patient, discussed the same with the dictator, and agree with the dictators assessment and plan as written, documented as a scribe. Based on total visit time, I have performed more than 50% of this visit. Objective - Vital Signs Vital signs: Vital Signs Temp 98 F 12/18/21 06:53 Pulse 74 12/18/21 08:27 Resp 18 12/18/21 08:27 BP 100/63 12/18/21 06:53 Pulse Ox 97 12/18/21 06:53 Intake & Output 12/17/21 12/18/21 12/18/21 18:59 06:59 18:59 Intake Total 1601 Output Total 1025 950 Balance 576 -950 Weight 93.4 kg Intake: IV 1601 Output: Urine 875 950 Estimated Blood Loss 150 Other: Voiding Method Toilet Toilet # Voids 1 - Labs CBC & Chem 7: 12/18/21 06:18 12/18/21 06:18 Labs: Abnormal Lab Results - Last 24 Hours (Table) 12/18/21 12/18/21 Range/Units 06:18 06:18 RBC 3.51 L (4.10-5.20) X 10*6/uL Hgb 10.4 L (12.0-15.0) g/dL Hct 32.9 L (37.2-46.3) % MCHC 31.6 L (32.0-37.0) g/dL Anion Gap 8.00 L (10.00-18.00) mmol/L Glucose 115 H (70-110) mg/dL Assessment and Plan Time with Patient: Less than 30
== END 2021-12-18 13:14 | disposition home health service (06) ==
LOC: OR 08:00 → 4SSUR 10:47 → OR 12-18 13:14
PROVIDERS: ATTEND Orthopaedic Surgery
DX: M16.12 Unilateral primary osteoarthritis, left hip (principal); F32.A Depression, unspecified; M19.90 Unspecified osteoarthritis, unspecified site
CPT/HCPCS: 27130; 93005; 97116; 97161; 97535; 97165; 86900; 86901; 88305; 80048; 85025; 86850; 88311; 73501; C1776; J2250; J1100; J0690 ×3; J2405; J2001; J3010; J1170 ×3; J2795; J2370; J2704

== ENCOUNTER → 2022-01-31 | Outpatient (CLI) | payer BC ==
--- NOTE | 2022-01-31 14:44 | CT ---
EXAMINATION TYPE: CT sinus wo con DATE OF EXAM: 01/31/2022 COMPARISON: CT facial bones August 07, 2010 HISTORY: h/o chronic sinusitis CT DLP: 660.8 mGycm. Automated Exposure Control for Dose Reduction was Utilized. TECHNIQUE: CT scan of the sinuses is performed without contrast, axial images are obtained, coronal r eformatted images are also reviewed. FINDINGS: The paranasal sinuses including the ethmoid, sphenoid, and maxillary sinuses bilaterally a re well-aerated without abnormal opacification or suspicious air-fluid levels. Hypoplastic or non-for med bilateral frontal sinuses redemonstrated . The ostiomeatal complex remains patent bilaterally on the coronal images. Visualized portion of mastoid air cells show no abnormal opacification. The globes are intact bilate rally. IMPRESSION: The sinuses remain clear and the ostiomeatal complex is patent bilaterally. No significan t change from prior.
--- NOTE | 2022-01-31 15:40 | US ---
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 Patient states doctor felt a nodule. GLAND SIZE: Right Lobe: 3.9 x 1.2 x 1.3 cm Overall Parenchyma: Heterogeneous Left Lobe: 3.9 x 1.6 x 1.2 cm Overall Parenchyma: heterogeneous Isthmus Thickness: 0.3 cm NODULES RIGHT: # of nodules measured on right: 0 LEFT: # of nodules measured on left: 1 1. 1.8 X 1.5 x 1.1 cm, lower mid, mixed cystic and solid, isoechoic nodule, which is wider than mejia l, with smooth margins, without echogenic foci. TR 2 Prior size: no previous ISTHMUS: # of nodules measured in the isthmus: 1 1. 0.8 X 0.6 x 0.3 cm solid or almost completely solid right lateral, hypoechoic nodule, which is w ider than tall, with smooth margins, without echogenic foci. TR 4 Prior size: no previous Bilateral neck scanned, no evidence of lymphadenopathy. Heterogeneous small size thyroid with 8mm solid isthmus nodule and 1.8 cm mixed lower pole left thyro id nodule IMPRESSION: As above. No suspicious nodules noted.
[2022-01-31 23:31] LABS: T4, Free (Free Thyroxine) 1.03 ng/dL (0.800-1.800)
== END | disposition home or self-care (01) ==
LOC: RADCTMAIN 14:14
PROVIDERS: ATTEND Otolaryngology
DX: J32.9 Chronic sinusitis, unspecified (principal); E04.2 Nontoxic multinodular goiter
CPT/HCPCS: 70486; 76536; 84439; 84443; 86376

== ENCOUNTER → 2022-03-05 | Outpatient (CLI) | payer BC | END | disposition home or self-care (01) | LOC: LABWHC1 12:26 | PROVIDERS: ATTEND Otolaryngology | DX: J30.89 Other allergic rhinitis (principal) | CPT/HCPCS: 36415 ==

== ENCOUNTER → 2022-04-25 | Outpatient (CLI) | payer BC ==
[2022-04-25 08:52] VITALS: BP 111/72; PULSE 72; RESP 16; TEMP 98.4
--- NOTE | 2022-04-25 09:18 | P.PN ---
Subjective Progress Note Date: 04/25/22 Principal diagnosis: Stages 0 left breast cancer, 2018 status post mastectomy for multifocal disease stage 0 left breast cancer The patient is a 61-year-old white female who had a bilateral screening mammogram on 8318. This was noted to have some new regional calcifications in the central left breast and diagnostic left breast mammogram [place]. [place] [id number]. On this film there was noted to be new regional calcification extending approximately over 7 cm in the left central slight inferior aspect of the breast seen best on lateral view and slightly outer aspect of the breast on CC view. This extended nearly up to the nipple with heterogeneous morphology of the calcifications. The patient had not noted any masses in her breast. She had no complaints of any nipple discharge or changes. She had no history of any trauma or infection to the breast. 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 A subpectoral enroller was placed for reconstruction. However, she developed a chronic seroma. In February 2019 she was taken back to surgery and the cavity was excised and the enroller was removed and a silicone breast implant was placed . She again accumulated fluid and this resulted in removal of the implant. She returned to surgery in May 2019 for closure of the defect with local advancement flap. The patient had been treated with an aromatase inhibitor which she stopped secondary to pain in her hands. She had a right breast mammogram performed on this is benign BIRADS 2. She has no complaints related to her right breast. There is no complaints related to the left chest wall at this time. She is not complaining of any lumps masses or nodules in her right breast. Patient is again considering reconstruction of the left breast. She presents today for 6 month follow-up related to her left mastectomy. At this time she does not have any complaints of any changes in her left chest wall. She is not complaining of any new lumps masses or nodules in her right breast. At this time she is interested in reconstruction again for the left breast. Family History: 1. maternal aunt: colon 2. maternal grandfather: lung Hormonal History: menarche: 14 : 3, 3 children, first at 23, breast fed: yes menopause: 55 BCP: 2 years hormones: 1 year on progesten stopped this summer Past Surgical History: 1. Kathy-en-Y gastric bypass 2. Right modified total hip replacement 3. Bilateral carpal tunnel 4. Right breast biopsy 5. Left breast mastectomy with enroller placement 6. Removal of implant 7. closure of the left chest wall 8. left total hip Past Medical History: 1. Depression and anxiety 2. 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 will have a chest x-ray later this week - Gastrointestinal Gastrointestinal: Denies abdominal pain, Denies diarrhea, Denies nausea, Denies vomiting - Genitourinary (Female) Genitourinary: Denies dysuria, Denies hematuria - Menstruation Menstruation: Reports postmenopausal - Musculoskeletal Comment: arthritis Musculoskeletal: Denies myalgias - Integumentary Integumentary: Denies pruritus, Denies rash - Neurological Neurological: Denies numbness, Denies weakness - Psychiatric Psychiatric: Reports anxiety, Reports depression - Endocrine Comment: lost weight 80 pounds after gastric bypass 18 years ago; interested in losing weight again at this time Endocrine: Reports weight change, Denies fatigue - Hematologic/Lymphatic Comment: none - Allergic/Immunologic Allergic/Immunologic: Reports seasonal allergies Objective - Vital Signs Vital signs: Vital Signs Temp 98.4 F 04/25/22 08:49 Pulse 72 04/25/22 08:49 Resp 16 04/25/22 08:49 BP 111/72 04/25/22 08:49 Pulse Ox 98 04/25/22 08:49 FiO2 Intake & Output 04/24/22 04/25/22 04/25/22 18:59 06:59 18:59 Weight 83.915 kg - Constitutional General appearance: Present: cooperative - EENT Eyes: Present: EOMI ENT: Present: hearing grossly normal - Neck Neck: Present: normal ROM - Respiratory Respiratory: bilateral: CTA - Cardiovascular Rhythm: regular Heart sounds: normal: S1, S2 - Gastrointestinal General gastrointestinal: Present: soft - Integumentary Integumentary: Present: normal turgor - Musculoskeletal Musculoskeletal: Present: gait normal - Psychiatric Psychiatric: Present: A&O x's 3, appropriate affect, intact judgment & insight - Additional findings Additional findings: Breast Exam: BRA: 42C inspection: Status post left mastectomy, redundant tissue, right breast grade 3 ptosis Palpation: Right breast: Multiple positional exam fibrocystic changes no dominant masses or nodules of concern Right axilla: No adenopathy of concern Left chest wall no evidence of any recurrent cancer Left axilla: No adenopathy of concern Assessment and Plan Assessment: Impression: 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 Rendon, or Dr. Willoughby) At this time she is not following with medical oncology and has declined the aromatase inhibitors secondary to symptoms CC: Dr. Dodd
== END ==
LOC: WWCWWP 08:38
PROVIDERS: ATTEND Surgery
DX: Z85.3 Personal history of malignant neoplasm of breast (principal); Z08 Encounter for follow-up examination after completed treatment for malignant neoplasm; F32.A Depression, unspecified; F41.9 Anxiety disorder, unspecified; Z88.5 Allergy status to narcotic agent

== ENCOUNTER → 2022-09-05 | Outpatient (CLI) | payer BC ==
[2022-09-05 08:30] VITALS: BP 124/79; PULSE 66; RESP 16; TEMP 98.4
== END ==
LOC: WWCWWP 07:31
PROVIDERS: ATTEND Surgery
DX: Z85.3 Personal history of malignant neoplasm of breast (principal)

== ENCOUNTER → 2022-09-05 | Outpatient (CLI) | payer BC ==
--- NOTE | 2022-09-05 09:08 | P.PN ---
Subjective Progress Note Date: 09/05/22 Principal diagnosis: left breast stage 0 DCIS Stage 0 left breast cancer/nodule right breast Stages 0 left breast cancer, 2018 status post mastectomy for multifocal disease stage 0 left breast cancer The patient is a 61-year-old white female who had a bilateral screening mammogr [place] on 8318. This was noted to have some new regional calcifications in the central left breast and diagnostic left breast mammogram [place]. [place] [address]. On this film there was noted to be new regional calcification extending approximately over 7 cm in the left central slight inferior aspect of the breast seen best on lateral view and slightly outer aspect of the breast on CC view. This extended nearly up to the nipple with heterogeneous morphology of the calcifications. The patient had not noted any masses in her breast. She had no complaints of any nipple discharge or changes. She had no history of any trauma or infection to the breast. 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 A subpectoral quality assurance supervisor chassis was placed for reconstruction. However, she developed a chronic seroma. In February 2019 she was taken back to surgery and the cavity was excised and the quality assurance supervisor chassis was removed and a silicone breast implant was placed . She again accumulated fluid and this resulted in removal of the implant. She returned to surgery in May 2019 for closure of the defect with local advancement flap. The patient had been treated with an aromatase inhibitor which she stopped secondary to pain in her hands. She had a right breast mammogram performed on this is benign BIRADS 2. She has no complaints related to her right breast. There is no complaints related to the left chest wall at this time. She is not complaining of any lumps masses or nodules in her right breast. Patient is again considering reconstruction of the left breast. She presents today for 6 month follow-up related to her left mastectomy. At this time she does not have any complaints of any changes in her left chest wall. She is not complaining of any new lumps masses or nodules in her right breast. At this time she is interested in reconstruction again for the left breast. 05-29-22 Patient states approximately 2 weeks ago she noticed some nodularity in the lower medial portion of the right breast. It is not painful, she has not had any trauma or infection in the breast. Did have an open biopsy at that site approximately 20 years ago which was benign. On today's date [id number] she had a mammogram and an ultrasound of this site which appears to be a coarse calcification in the region and is felt to be benign and review with the radiologist. 09-05-22 The patient had a ultrasound performed today to follow an area posterior to coarse calcification which had shown an ultrasound change on her last study, on 05-29-22. The ultrasound today does not reveal any change is felt to be benign I reviewed this personally with Dr. Solo and he feels that she is stable to have a repeat mammogram in May of next year. The patienty does not feel anything of concern. Not complaining of any new lumps masses or nodules of concern in her right breast on her left chest wall. Additionally she has been waiting for contact from a plastic surgeon regarding reconstruction of the left breast. At this time she is feeling frustrated and may consider a mastectomy on the right for symmetry. Family History: 1. maternal aunt: colon 2. maternal grandfather: lung Hormonal History: menarche: 14 : 3, 3 children, first at 23, breast fed: yes menopause: 55 BCP: 2 years hormones: 1 year on progesten stopped this summer Past Surgical History: 1. Kathy-en-Y gastric bypass 2. Right modified total hip replacement 3. Bilateral carpal tunnel 4. Right breast biopsy 5. Left breast mastectomy with quality assurance supervisor chassis placement 6. Removal of implant 7. closure of the left chest wall 8. left total hip Past Medical History: 1. Depression and anxiety 2. 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 will have a chest x-ray later this week - Gastrointestinal Gastrointestinal: Denies abdominal pain, Denies diarrhea, Denies nausea, Denies vomiting - Genitourinary (Female) Genitourinary: Denies dysuria, Denies hematuria - Menstruation Menstruation: Reports postmenopausal - Musculoskeletal Comment: arthritis Musculoskeletal: Denies myalgias - Integumentary Integumentary: Denies pruritus, Denies rash - Neurological Neurological: Denies numbness, Denies weakness - Psychiatric Psychiatric: Reports anxiety, Reports depression - Endocrine Comment: lost weight 80 pounds after gastric bypass 18 years ago; interested in losing weight again at this time Endocrine: Reports weight change, Denies fatigue - Hematologic/Lymphatic Comment: none - Allergic/Immunologic Allergic/Immunologic: Reports seasonal allergies Objective - Constitutional General appearance: Present: cooperative - EENT Eyes: Present: EOMI ENT: Present: hearing grossly normal - Neck Neck: Present: normal ROM - Respiratory Respiratory: bilateral: CTA - Cardiovascular Rhythm: regular Heart sounds: normal: S1, S2 - Integumentary Integumentary: Present: normal turgor - Musculoskeletal Musculoskeletal: Present: gait normal - Psychiatric Psychiatric: Present: A&O x's 3, appropriate affect, intact judgment & insight - Additional findings Additional findings: Breast Exam: BRA: 42C Inspection: Patient status post left mastectomy no evidence of infection skin incision healed well, ptosis right breast 2/3 Palpation: Right breast: Multiple positional exam fibrocystic changes no dominant masses or nodules of concern Right axilla: No adenopathy of concern Left chest wall: Incision clean and dry no evidence of infection Left axilla: No adenopathy of concern Assessment and Plan Assessment: Impression: Stages 0 multifocal left breast DCIS no evidence of recurrence At this time the patient has chosen to stop the aromatase inhibitor Attempted reconstruction twice was unsuccessful secondary to seroma/infection at this time she does not have any quality assurance supervisor chassis but may pursue reconstruction again in the future, she is given the name of Dr. epps a plastic surgeon in [place] Repeat right breast ultrasound does not reveal any lesion of concern in the area of shadowing appears to be secondary to a coarse calcification in the breast, this was personally reviewed with Dr. Solo and felt to be benign Plan: Repeat right breast mammogram in May 2023 with appointment at that time Patient was given the name of plastic surgeon and she will pursue this as she wishes to Patient to follow up here sooner any questions or concerns Cc: Dr. Dodd
--- NOTE | 2022-09-08 08:27 | USB ---
Reason for Exam: Clinical finding. Patient History: Menarche at age 14. First Full-Term at age 22. Postmenopausal. Breast cancer, age 58. 10/26/2018, Mastectomy on the Left side. 1999, Benign Excisional Biopsy on the right side. 09/03/2018, Malignant Core Biopsy on the left side. 09/03/2018, Malignant Core Biopsy on the left side. Implant Removal, left. Technique: Method: Whole Breast Handheld. Prior Study Comparison: 09/12/2020 Right Diagnostic Mammogram, [facility]. 09/18/2021 Right Diagnostic Mammogram, [facility]. 05/29/2022 Right MG 3D diag mammo w/cad RT, [facility]. 05/29/2022 Right US breast limited RT, [facility]. Findings: The whole breast of the right breast, the axilla of the right breast and the retroareolar of the right breast were scanned. There is a stable echogenic focus with posterior shadowing the right breast 3:00 position 8 cm from nipple. This correlates with a large calcification within the right breast can be compatible benign finding. This is stable from the comparison of 05/29/2022. Overall Assessment: Benign, BI-RAD 2 Management: Return to routine follow-up (next follow-up: 05/29/2023 for Screening Mammogram) A clinical breast exam by your physician is recommended on an annual basis and results should be correlated with mammographic findings. This exam should not preclude additional follow-up of suspicious palpable abnormalities. Results were given to the patient verbally at the time of exam. Electronically signed and approved by: Bran Solo D.O. Radiologis
== END | disposition home or self-care (01) ==
LOC: RADUSWWP 07:29
PROVIDERS: ATTEND Surgery
DX: D05.12 Intraductal carcinoma in situ of left breast (principal); N64.89 Other specified disorders of breast; Z90.12 Acquired absence of left breast and nipple; Z98.84 Bariatric surgery status

== ENCOUNTER → 2022-09-23 | Outpatient (CLI) | payer BC ==
--- NOTE | 2022-09-23 09:33 | US ---
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 Thyroid nodules. GLAND SIZE: Right Lobe: 4.1 x 1.4 x 1.2 cm Overall Parenchyma: homogenous Left Lobe: 4.4 x 1.2 x 1.5 cm Overall Parenchyma: homogeneous Isthmus Thickness: .2 cm NODULES RIGHT: # of nodules measured on right: 0 LEFT: # of nodules measured on left: 1 1. 1.8 X 1.2 x 1.8 cm, lower lateral, mixed cystic and solid, hypoechoic nodule, which is wider brian n tall, with smooth margins, without echogenic foci. TR 3. Prior size: 1.8 x 1.1 x 1.5 cm ISTHMUS: # of nodules measured in the isthmus: 1 1. .6 X .2 x .6 cm solid or almost completely solid, hypoechoic nodule, which is wider than tall, w ith smooth margins, without echogenic foci. TR 4. Prior size: .8 x .3 x .6 cm Bilateral neck scanned, no evidence of lymphadenopathy. Stable heterogenous small sized thyroid with 6 mm solid isthmus nodule and 1.8 cm mixed lower pole le ft thyroid nodule. IMPRESSION: Stable thyroid nodules from prior examination as described above. No new suspicious nodules.
== END | disposition home or self-care (01) ==
LOC: RADUSWWP 08:19
PROVIDERS: ATTEND Otolaryngology
DX: E04.2 Nontoxic multinodular goiter (principal)
CPT/HCPCS: 76536

== ENCOUNTER → 2023-06-01 | Outpatient (CLI) | payer BC ==
--- NOTE | 2023-06-01 14:55 | MM ---
Reason for Exam: Additional evaluation requested from prior study. Last screening mammogram was performed 12 month(s) ago. Patient History: Menarche at age 14. First Full-Term at age 22. Postmenopausal. Breast cancer, age 58. 10/26/2018, Mastectomy on the Left side. 1999, Benign Excisional Biopsy on the right side. 09/03/2018, Malignant Core Biopsy on the left side. 09/03/2018, Malignant Core Biopsy on the left side. Implant Removal, left. Prior Study Comparison: 09/12/2020 Right Diagnostic Mammogram, [facility]. 09/18/2021 Right Diagnostic Mammogram, [facility]. 05/29/2022 Right MG 3D diag mammo w/cad RT, [facility]. Tissue Density: Right: The breast tissue is heterogeneously dense. This may lower the sensitivity of mammography. Findings: Analyzed By CAD. No new suspicious masses, calcifications or distortions. Benign-appearing calcifications. Overall Assessment: Benign, BI-RAD 2 Management: Screening Mammogram of both breasts in 1 year. Results were given to the patient verbally at the time of exam. Patient should continue monthly self-breast exams. A clinical breast exam by your physician is recommended on an annual basis. This exam should not preclude additional follow-up of suspicious palpable abnormalities. Note on Anisa scores and lifetime risk: 1. A Anisa score greater than 3% is considered moderate risk. If this is the case, consider specialist referral to assess eligibility for a risk reducing agent. 2. If overall lifetime risk for the development of breast cancer is 20% or higher, the patient may qualify for future screening with alternating mammogram and breast MRI. Electronically signed and approved by: Wilson Coughlin DO
== END | disposition home or self-care (01) ==
LOC: RADMAMWWP 09:01
PROVIDERS: ATTEND Surgery
DX: R92.8 Other abnormal and inconclusive findings on diagnostic imaging of breast (principal); Z85.3 Personal history of malignant neoplasm of breast; Z78.0 Asymptomatic menopausal state
CPT/HCPCS: 77061; 77065

== ENCOUNTER → 2023-06-18 | Outpatient (CLI) | payer BC ==
--- NOTE | 2023-06-18 09:21 | P.PN ---
Subjective Progress Note Date: 06/18/23 Principal diagnosis: stage 0 left breast cancer/mastectomy diffuse disease left breast stage 0 DCIS Stage 0 left breast cancer/nodule right breast Stages 0 left breast cancer, 2018 status post mastectomy for multifocal disease stage 0 left breast cancer The patient is a 61-year-old white female who had a bilateral screening mammogram on 8318. This was noted to have some new regional calcifications in the central left breast and diagnostic left breast mammogram [place]. [place] [address]. On this film there was noted to be new regional calcification extending approximately over 7 cm in the left central slight inferior aspect of the breast seen best on lateral view and slightly outer aspect of the breast on CC view. This extended nearly up to the nipple with heterogeneous morphology of the calcifications. The patient had not noted any masses in her breast. She had no complaints of any nipple discharge or changes. She had no history of any trauma or infection to the breast. 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 A subpectoral school age program teacher was placed for reconstruction. However, she developed a chronic seroma. In February 2019 she was taken back to surgery and the cavity was excised and the school age program teacher was removed and a silicone breast implant was placed . She again accumulated fluid and this resulted in removal of the implant. She returned to surgery in May 2019 for closure of the defect with local advancement flap. The patient had been treated with an aromatase inhibitor which she stopped secondary to pain in her hands. She had a right breast mammogram performed on this is benign BIRADS 2. She has no complaints related to her right breast. There is no complaints related to the left chest wall at this time. She is not complaining of any lumps masses or nodules in her right breast. Patient is again considering reconstruction of the left breast. She presents today for 6 month follow-up related to her left mastectomy. At this time she does not have any complaints of any changes in her left chest wall. She is not complaining of any new lumps masses or nodules in her right breast. At this time she is interested in reconstruction again for the left breast. 05-29-22 Patient states approximately 2 weeks ago she noticed some nodularity in the lower medial portion of the right breast. It is not painful, she has not had any trauma or infection in the breast. Did have an open biopsy at that site approximately 20 years ago which was benign. On today's date [id number] she had a mammogram and an ultrasound of this site which appears to be a coarse calcification in the region and is felt to be benign and review with the radiologist. 09-05-22 The patient had a ultrasound performed today to follow an area posterior to coarse calcification which had shown an ultrasound change on her last study, on 05-29-22. The ultrasound today does not reveal any change is felt to be benign I reviewed this personally with Dr. Solo and he feels that she is stable to have a repeat mammogram in May of next year. The patienty does not feel anything of concern. Not complaining of any new lumps masses or nodules of concern in her right breast on her left chest wall. Additionally she has been waiting for contact from a plastic surgeon regarding reconstruction of the left breast. At this time she is feeling frustrated and may consider a mastectomy on the right for symmetry. 06-18-23 Right breast mammogram on 06-01-23 SHANA Rueda, personally reviewed; She is going to see a plastic surgeon Gunner De La Fuente from [facility]. She has seen him and had an school age program teacher placed last week. This was placed prepectoral. She does not feel any lumps masses or nodules of concern in her right breast on her left chest wall. Family History: 1. maternal aunt: colon 2. maternal grandfather: lung Hormonal History: menarche: 14 : 3, 3 children, first at 23, breast fed: yes menopause: 55 BCP: 2 years hormones: 1 year on progesten stopped this summer Past Surgical History: 1. Kathy-en-Y gastric bypass 2. Right modified total hip replacement 3. Bilateral carpal tunnel 4. Right breast biopsy 5. Left breast mastectomy with school age program teacher placement 6. Removal of implant 7. closure of the left chest wall 8. left total hip Past Medical History: 1. Depression and anxiety 2. 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 hose handler will have a chest x-ray later this week - Gastrointestinal Gastrointestinal: Denies abdominal pain, Denies diarrhea, Denies nausea, Denies vomiting - Genitourinary (Female) Genitourinary: Denies dysuria, Denies hematuria - Menstruation Menstruation: Reports postmenopausal - Musculoskeletal Comment: arthritis Musculoskeletal: Denies myalgias - Integumentary Integumentary: Denies pruritus, Denies rash - Neurological Neurological: Denies numbness, Denies weakness - Psychiatric Psychiatric: Reports anxiety, Reports depression - Endocrine Comment: lost weight 80 pounds after gastric bypass 18 years ago; interested in losing weight again at this time Endocrine: Reports weight change, Denies fatigue - Hematologic/Lymphatic Comment: none - Allergic/Immunologic Allergic/Immunologic: Reports seasonal allergies Objective - Constitutional General appearance: Present: cooperative - EENT Eyes: Present: EOMI ENT: Present: hearing grossly normal - Neck Neck: Present: normal ROM - Respiratory Respiratory: bilateral: CTA - Cardiovascular Heart sounds: normal: S1, S2 - Integumentary Integumentary: Present: normal turgor - Musculoskeletal Musculoskeletal: Present: gait normal - Psychiatric Psychiatric: Present: A&O x's 3, appropriate affect, intact judgment & insight - Additional findings Additional findings: Breast Exam: BRA: 42C Inspection: Patient status post left mastectomy incision for school age program teacher placement is mildly erythematous, she is following with plastic surgery the school age program teacher was placed last week, right breast grade 2/3 ptosis Palpation: Right breast: Multiple positional exam fibrocystic changes no dominant masses or nodules of concern Right axilla: No adenopathy of concern Left chest wall: Incision left chest wall from recent school age program teacher placement mildly erythematous she is following with plastic surgery, no evidence of any recurrent disease on the chest wall Drain in place serous drainage Left axilla: No adenopathy of concern Assessment and Plan Assessment: Impression: Stages 0 multifocal left breast DCIS no evidence of recurrence At this time the patient has chosen to stop the aromatase inhibitor Attempted reconstruction twice was unsuccessful secondary to seroma/infection at this time she does not have any school age program teacher but may pursue reconstruction again in the future The patient had a left breast prepectoral school age program teacher placed last week and is following with plastic surgery at [place] Plan: Repeat right breast mammogram in May 2023 BIRAD 2, repeat in 1 year Follow-up 6 months Follow-up sooner any questions or concerns We'll continue to follow with plastic surgeon at [facility] Cc: Dr. Dodd
[2023-06-18 16:00] VITALS: BP 124/77; PULSE 81; RESP 17; TEMP 98.1
== END ==
LOC: WWCWWP 08:42
PROVIDERS: ATTEND Surgery
DX: Z85.3 Personal history of malignant neoplasm of breast (principal); Z88.5 Allergy status to narcotic agent; Z90.12 Acquired absence of left breast and nipple

== ENCOUNTER → 2023-09-21 | Outpatient (CLI) | payer BC ==
--- NOTE | 2023-09-22 08:50 | XR ---
EXAMINATION TYPE: XR chest 2V DATE OF EXAM: 09/21/2023 COMPARISON: NONE TECHNIQUE: PA and lateral views submitted. HISTORY: Cough FINDINGS: The lungs are clear and there is no pneumothorax, pleural effusion, or focal pneumonia. Heart size normal and no overt failure. Osseous structures demonstrate hypertrophic and degenerative changes of the spine. Surgical clips overlying the left chest. Suspect calcific tendinosis of the left shoulder. AC joint arthropathy. IMPRESSION: 1. No acute process.
== END | disposition home or self-care (01) ==
LOC: RADXRMAIN 17:17
PROVIDERS: ATTEND Nurse Practitioner Family
DX: R05.9 Cough, unspecified (principal)
CPT/HCPCS: 71046

== ENCOUNTER 2023-12-09 11:46 | Day surgery (SDC) | payer BC ==
[~2023-12-09 11:46] MED LIST changes: -ACETAMINOPHEN TAB 500 MG TAB PO PRN; -DEXAMETHASONE SOD PHOSPHATE 4 MG/ML 1 ML VIAL IV ONE; -GABAPENTIN 300 MG CAP PO PRN; +LACTATED RINGERS 1,000 ML IV SCH; +LIDOCAINE 1% (10MG/ML) FOR IV START INTRADERMA PRN; -MELOXICAM 7.5 MG TAB PO PRN; -ONDANSETRON 4 MG/2 ML VIAL IVP ONE; +ONDANSETRON 4 MG/2 ML VIAL IVP PRN; -TRANEXAMIC ACID IN NACL,ISO-OS 1,000 MG in SALINE 1 100ML.BAG IVPB PRN
[2023-12-09] MEDS: LACTATED RINGERS 1,000 ML IV ONE (12:13)
[2023-12-09 12:14] VITALS: RESP 18; TEMP 97.1
[2023-12-09] MEDS ORDERED: LIDOCAINE 1% INJ 10MG/ML (20 ML MDV) ONE (12:36)
[2023-12-09] MEDS ORDERED: PROPOFOL 10 MG/ML 20 ML VIAL IV ONE (12:36)
[2023-12-09] MEDS: LIDOCAINE 2% INJ 20 MG/ML INTRATRACH ONE (12:48)
[2023-12-09 13:21] VITALS: BP 115/65; PULSE 81
[2023-12-09 18:06] LABS: Appearance,BF Slightly Cloudy (Clear); RBC, Body Fluid 25 /UL (0-2000)
--- NOTE | 2023-12-09 19:04 | OP ---
OPERATIVE REPORT DATE OF SERVICE : PROCEDURES PERFORMED: Bronchoscopy and bronchoalveolar lavage of the right middle lobe and right lower lobe. PREOPERATIVE DIAGNOSIS: Chronic cough. POSTOPERATIVE DIAGNOSIS: Chronic cough and mild tracheomalacia. ANESTHESIA USED: IV conscious sedation. DESCRIPTION OF PROCEDURE: The patient was brought in to the bronchoscopy suite, she was prepared according to the bronchoscopy protocol prior to procedure. The patient was placed in a supine position, O2 was applied via Ventimask, and O2 saturation was monitored continuously via pulse oximetry. The cardiac rhythm was continuously monitored, blood pressure was intermittently monitored. After adequate IV conscious sedation, the bronchoscope was advanced through the Ventimask through a bite block to the area of the vocal cords. The vocal cords were noted to be intact, patent, and no evidence of any pathology noted over the vocal cords. Lidocaine was applied over the vocal cords, and the bronchoscope was advanced further down. Thorough examination was done of the trachea, right upper lobe, right middle lobe, right lower lobe, left upper lobe lingula, and left lower lobe. There was no evidence of any endobronchial lesions noted in any of these areas. The mucosa was noted to be normal. Bronchoalveolar lavage was done of the right middle lobe and right lower lobe. I then went back and examined the trachea again, there is mild tracheomalacia noted, the trachea collapses easily, but no significant lesions noted on the tracheal wall. Procedure was well tolerated, fluid was sent for different diagnostic studies, and no evidence of any complications. MMODL / IJN: [id number] /
[2023-12-10 11:28] LABS: Nucleated Cells, Body Fluid 575 /UL
== END 2023-12-09 13:37 | disposition home or self-care (01) ==
LOC: ORWHC2ENDO 11:46
PROVIDERS: ATTEND Internal Medicine
DX: J39.8 Other specified diseases of upper respiratory tract (principal); M19.90 Unspecified osteoarthritis, unspecified site; F41.9 Anxiety disorder, unspecified; F32.A Depression, unspecified; Z88.5 Allergy status to narcotic agent; Z79.899 Other long term (current) drug therapy
CPT/HCPCS: 89050; 87070; 87205; 87116; 87102; 87206; 31624; J2001 ×2; J2704

== ENCOUNTER → 2023-12-17 | Outpatient (CLI) | payer BC ==
[2023-12-17 08:51] VITALS: BP 153/77; RESP 15; TEMP 98.4
--- NOTE | 2023-12-17 09:13 | P.PN ---
Subjective Progress Note Date: 12/17/23 12-16-23 Principal diagnosis: stage 0 left breast cancer/mastectomy diffuse disease left breast stage 0 DCIS 12-16-23 The patient is a 61-year-old white female who had a bilateral screening mammogram on 8318. This was noted to have some new regional calcifications in the central left breast and diagnostic left breast mammogram [place]. [place] [address]. On this film there was noted to be new regional calcification extending approximately over 7 cm in the left central slight inferior aspect of the breast seen best on lateral view and slightly outer aspect of the breast on CC view. This extended nearly up to the nipple with heterogeneous morphology of the calcifications. The patient had not noted any masses in her breast. She had no complaints of any nipple discharge or changes. She had no history of any trauma or infection to the breast. 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 A subpectoral wire chief was placed for reconstruction. However, she developed a chronic seroma. In February 2019 she was taken back to surgery and the cavity was excised and the wire chief was removed and a silicone breast implant was placed . She again accumulated fluid and this resulted in removal of the implant. She returned to surgery in May 2019 for closure of the defect with local advancement flap. The patient had been treated with an aromatase inhibitor which she stopped secondary to pain in her hands. She had a right breast mammogram performed on 06-01-23 which was BIRAD 2. She has no complaints related to her right breast. There is no complaints related to the left chest wall at this time. She is not complaining of any lumps masses or nodules in her right breast. Patient had a left breast pre-pectoral wire chief placed in June [address] Gunner De La Fuente from [facility]. She again developed a seroma with the wire chief and it was removed in August 2023. She had a latismus flap reconstruction of the left breast and a reduction of the right breast. She has done well with this. Family History: 1. maternal aunt: colon 2. maternal grandfather: lung Hormonal History: menarche: 14 : 3, 3 children, first at 23, breast fed: yes menopause: 55 BCP: 2 years hormones: 1 year on progesten stopped this summer Past Surgical History: 1. Kathy-en-Y gastric bypass 2. Right modified total hip replacement 3. Bilateral carpal tunnel 4. Right breast biopsy 5. Left breast mastectomy with wire chief placement 6. Removal of implant 7. closure of the left chest wall 8. left total hip 9. Reduction mammoplasty 10. Left breast latissimus dorsi reconstruction Past Medical History: 1. Depression and anxiety 2. 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 will have a chest x-ray later this week - Gastrointestinal Gastrointestinal: Denies abdominal pain, Denies diarrhea, Denies nausea, Denies vomiting - Genitourinary (Female) Genitourinary: Denies dysuria, Denies hematuria - Menstruation Menstruation: Reports postmenopausal - Musculoskeletal Comment: arthritis Musculoskeletal: Denies myalgias - Integumentary Integumentary: Denies pruritus, Denies rash - Neurological Neurological: Denies numbness, Denies weakness - Psychiatric Psychiatric: Reports anxiety, Reports depression - Endocrine Comment: lost weight 80 pounds after gastric bypass 18 years ago; interested in losing weight again at this time Endocrine: Reports weight change, Denies fatigue - Hematologic/Lymphatic Comment: none - Allergic/Immunologic Allergic/Immunologic: Reports seasonal allergies Objective - Vital Signs Vital signs: Vital Signs Temp 98.4 F 12/17/23 08:45 Pulse 16 L 12/17/23 08:45 Resp 15 12/17/23 08:45 BP 153/77 12/17/23 08:45 Pulse Ox 99 12/17/23 08:45 FiO2 Intake & Output 12/16/23 12/17/23 12/17/23 18:59 06:59 18:59 Weight 88.451 kg - Constitutional General appearance: Present: cooperative - EENT Eyes: Present: EOMI ENT: Present: hearing grossly normal - Neck Neck: Present: normal ROM - Respiratory Respiratory: bilateral: CTA - Cardiovascular Heart sounds: normal: S1, S2 - Integumentary Integumentary: Present: normal turgor - Musculoskeletal Musculoskeletal: Present: gait normal - Psychiatric Psychiatric: Present: A&O x's 3, appropriate affect, intact judgment & insight - Additional findings Additional findings: Breast Exam: BRA: 42C Inspection: Right breast reduction mammoplasty, incisions clean and dry, left breast latissimus flap reconstruction Palpation: Right breast: Multiple positional exam fibrocystic changes no dominant masses or nodules of concern, postoperative changes Right axilla: No adenopathy of concern Left chest wall: Latissimus dorsi reconstruction, no evidence of any recurrent cancer Left axilla: No adenopathy of concern Assessment and Plan Assessment: Impression: Stages 0 multifocal left breast DCIS no evidence of recurrence At this time the patient has chosen to stop the aromatase inhibitor Attempted reconstruction twice was unsuccessful secondary to seroma/infection, he is status post left chest wall latissimus dorsi reconstruction Right breast reduction mammoplasty Plan: Repeat right breast mammogram in May 2023 BIRAD 2, repeat in May 2024 with appointment Follow-up sooner any questions or concerns We'll continue to follow with plastic surgeon at [facility] Cc: Dr. Dodd Additional CC's: Scooby Dodd
[2023-12-17 09:26] VITALS: PULSE 84
== END ==
LOC: WWCWWP 08:36
PROVIDERS: ATTEND Surgery
DX: D05.12 Intraductal carcinoma in situ of left breast (principal); N64.89 Other specified disorders of breast; Z90.12 Acquired absence of left breast and nipple

== ENCOUNTER → 2024-01-26 | Outpatient (CLI) | payer BC ==
[2024-01-26 15:49] LABS: Basophils % (A) 1 %; Eosinophils # (A) 0.2 k/uL (0-0.7); Eosinophils % (A) 4 %; HCT 39.1 % (34.0-46.0); HGB 12.8 gm/dL (11.4-16.0); Lymphocytes # (A) 1.7 k/uL (1.0-4.8); Lymphocytes % (A) 28 %; MCH 30.6 pg (25.0-35.0); MCHC 32.7 g/dL (31.0-37.0); MCV 93.5 fL (80.0-100.0); Mean Platelet Volume 7.9; Monocytes # (A) 0.5 k/uL (0-1.0); Monocytes % (A) 7 %; Neutrophils # (A) 3.5 k/uL (1.3-7.7); Neutrophils % (A) 57 %; Platelet Count 281 k/uL (150-450); RBC 4.18 m/uL (3.80-5.40); RDW 13.7 % (11.5-15.5); WBC 6.1 k/uL (3.8-10.6)
[2024-01-26 16:40] LABS: Total Eosinophil Count 227 #EOS/uL (150-300)
[2024-01-27 02:32] LABS: Alternaria alternata IgE <0.10 kU/L; Aspergillus fumagatus IgE <0.10 kU/L; Birch IgE <0.10 kU/L; Cat Epith & Dander IgE <0.10 kU/L; Cladosporian herbarum IgE <0.10 kU/L; Cockroach IgE <0.10 kU/L; Dermato. farinae IgE <0.10 kU/L; Dog Dander IgE <0.10 kU/L; Elm IgE <0.10 kU/L; Maple (Box Elder) IgE <0.10 kU/L; Oak IgE <0.10 kU/L; Ragweed,Common IgE <0.10 kU/L; Red Top (Bentgrass) IgE <0.10 kU/L
== END | disposition home or self-care (01) ==
LOC: LABWHC1 15:18
PROVIDERS: ATTEND Internal Medicine
DX: J45.991 Cough variant asthma (principal)
CPT/HCPCS: 36415; 82785; 85008; 85025; 86003

== ENCOUNTER 2024-04-19 09:15 | Day surgery (SDC) | payer BC ==
[2024-04-14 10:09] VITALS: BMI 36.6
[2024-04-19 09:45] VITALS: RESP 16; TEMP 97.4
[2024-04-19] MEDS: LIDOCAINE 1% (10MG/ML) FOR IV START INTRADERMA PRN (09:49)
[2024-04-19] MEDS: LACTATED RINGERS 1,000 ML IV SCH (09:49)
[2024-04-19] MEDS: IV FLUID CONTINUATION 1,000 ML IV ONE (09:56)
[2024-04-19] MEDS ORDERED: LIDOCAINE 1% INJ 10MG/ML (20 ML MDV) ONE (10:27)
[2024-04-19] MEDS ORDERED: PROPOFOL 10 MG/ML 20 ML VIAL IV ONE (10:27)
--- NOTE | 2024-04-19 10:51 | P.PCN ---
Date of Procedure: 04/19/24 Procedure(s) Performed: BRIEF HISTORY: Patient is a 64-year-old pleasant white female scheduled for an elective colonoscopy as a part of screening for colon cancer. PROCEDURE PERFORMED: Colonoscopy with snare polypectomy PREOPERATIVE DIAGNOSIS: Screening for colon cancer. IV sedation per Anesthesia. PROCEDURE: After informed consent was obtained, the patient, was brought into the endoscopy unit. IV sedation was administered by Anesthesia under continuous monitoring. Digital rectal examination was normal. Initially the Olympus CF-160 flexible video colonoscope was then inserted in the rectum, gradually advanced into the cecum without any difficulty. Careful examination was performed as the scope was gradually being withdrawn. Ileocecal valve and the appendiceal orifice were visualized and appeared normal. Prep was excellent. Mucosa of the cecum, ascending colon, appeared normal. In the transverse colon there was a 1 cm broad-based polyp removed by snare polypectomy. In the proximal descending colon there was a 5 mm and 1.5 cm broad-based polyp removed by snare polypectomy. Scattered Diverticulosis seen. Transverse colon, descending colon, sigmoid colon, and rectum appeared normal. Retroflexion was performed in the rectum and no lesions were seen. The patient tolerated the procedure well. IMPRESSION: 1 cm transverse colon polyp status post polypectomy 1.5 cm based proximal descending colon polyp and a 5 mm polyp status post snare polypectomy Scattered sigmoid diverticulosis RECOMMENDATIONS: Findings of this examination were discussed with the patient as well as her family. She was advised to follow-up with the biopsy results. If the biopsy reveals adenoma she can have repeat colonoscopy in 3 years..
[2024-04-19 11:10] VITALS: BP 145/78; PULSE 69
== END 2024-04-19 11:32 | disposition home or self-care (01) ==
LOC: ORWHC2ENDO 09:15
PROVIDERS: ATTEND Internal Medicine Gastroenterology
DX: K57.30 Diverticulosis of large intestine without perforation or abscess without bleeding (principal); D12.3 Benign neoplasm of transverse colon; D12.4 Benign neoplasm of descending colon; Z88.5 Allergy status to narcotic agent; Z79.899 Other long term (current) drug therapy
CPT/HCPCS: 88305; 45385; J2001; J2704

== ENCOUNTER → 2024-07-13 | Outpatient (CLI) | payer BC ==
--- NOTE | 2024-07-13 07:52 | MM ---
Reason for Exam: Follow-up at short interval from prior study. Last mammogram was performed 1 year(s) and 2 month(s) ago. Patient History: Menarche at age 14. First Full-Term at age 22. Postmenopausal. Breast cancer, left, age 58. 02/16/2023, Reduction on the Right side. 10/26/2018, Mastectomy on the Left side. 1999, Benign Excisional Biopsy on the right side. 09/03/2018, Malignant Core Biopsy on the left side. 09/03/2018, Malignant Core Biopsy on the left side. Implant Removal, left. Prior Study Comparison: 09/18/2021 Right Diagnostic Mammogram, [facility]. 05/29/2022 Right MG 3D diag mammo w/cad RT, [facility]. 06/01/2023 Right MG 3D diag mammo w/cad RT, [facility]. Tissue Density: Right: The breasts are heterogeneously dense, which may obscure small masses. Findings: Analyzed By CAD. Postoperative distortion seen with the multiple traumatic oil cysts noted. No solid masses identified or suspicious calcifications. Overall Assessment: Benign, BI-RAD 2 Management: Diagnostic Mammogram of the right breast in 1 year. . Results were given to the patient verbally at the time of exam. Patient should continue monthly self-breast exams. A clinical breast exam by your physician is recommended on an annual basis. This exam should not preclude additional follow-up of suspicious palpable abnormalities. Note on Anisa scores and lifetime risk: 1. A Anisa score greater than 3% is considered moderate risk. If this is the case, consider specialist referral to assess eligibility for a risk reducing agent. 2. If overall lifetime risk for the development of breast cancer is 20% or higher, the patient may qualify for future screening with alternating mammogram and breast MRI. [facility], , 07/13/2024 7:49 AM. Electronically signed and approved by: Jese English M.D. Radiolog[facility]
== END | disposition home or self-care (01) ==
LOC: RADMAMWWP 07:33
PROVIDERS: ATTEND Surgery
CPT/HCPCS: 77061; 77065

== ENCOUNTER → 2024-09-08 | Outpatient (CLI) | payer BC ==
[2024-09-08 10:25] VITALS: BP 146/71; PULSE 92; RESP 17; TEMP 97.6
--- NOTE | 2024-09-08 10:30 | P.PN ---
Subjective Progress Note Date: 09/08/24 Principal diagnosis: left breast DCIS stage 0 left breast cancer/mastectomy diffuse disease left breast stage 0 DCIS 09-08-24 The patient is a 64-year-old white female who had a bilateral screening mammogram on 8318. This was noted to have some new regional calcifications in the central left breast and diagnostic left breast mammogram [place]. [place] [address]. On this film there was noted to be new regional calcification extending approximately over 7 cm in the left central slight inferior aspect of the breast seen best on lateral view and slightly outer aspect of the breast on CC view. This extended nearly up to the nipple with heterogeneous morphology of the calcifications. The patient had not noted any masses in her breast. She had no complaints of any nipple discharge or changes. She had no history of any trauma or infection to the breast. 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 A subpectoral sound assistant was placed for reconstruction. However, she developed a chronic seroma. In February 2019 she was taken back to surgery and the cavity was excised and the sound assistant was removed and a silicone breast implant was placed . She again accumulated fluid and this resulted in removal of the implant. She returned to surgery in May 2019 for closure of the defect with local advancement flap. The patient had been treated with an aromatase inhibitor which she stopped secondary to pain in her hands. She had a right breast mammogram performed on 06-01-23 which was BIRAD 2. She has no complaints related to her right breast. There is no complaints related to the left chest wall at this time. She is not complaining of any lumps masses or nodules in her right breast. Patient had a left breast pre-pectoral sound assistant placed in June [address] Gunner De La Fuente from [facility]. She again developed a seroma with the sound assistant and it was removed in August 2023. She had a latismus flap reconstruction of the left breast and a reduction of the right breast. She has done well with this. right breast mammogram on 07-13-24 BIRAD 2 Family History: 1. maternal aunt: colon 2. maternal grandfather: lung Hormonal History: menarche: 14 : 3, 3 children, first at 23, breast fed: yes menopause: 55 BCP: 2 years hormones: 1 year on progesten stopped this summer Past Surgical History: 1. Kathy-en-Y gastric bypass 2. Right modified total hip replacement 3. Bilateral carpal tunnel 4. Right breast biopsy 5. Left breast mastectomy with sound assistant placement 6. Removal of implant 7. closure of the left chest wall 8. left total hip 9. Reduction mammoplasty 10. Left breast latissimus dorsi reconstruction Past Medical History: 1. Depression and anxiety 2. 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 will have a chest x-ray later this week - Gastrointestinal Gastrointestinal: Denies abdominal pain, Denies diarrhea, Denies nausea, Denies vomiting - Genitourinary (Female) Genitourinary: Denies dysuria, Denies hematuria - Menstruation Menstruation: Reports postmenopausal - Musculoskeletal Comment: arthritis Musculoskeletal: Denies myalgias - Integumentary Integumentary: Denies pruritus, Denies rash - Neurological Neurological: Denies numbness, Denies weakness - Psychiatric Psychiatric: Reports anxiety, Reports depression - Endocrine Comment: lost weight 80 pounds after gastric bypass 18 years ago; interested in losing weight again at this time Endocrine: Reports weight change, Denies fatigue - Hematologic/Lymphatic Comment: none - Allergic/Immunologic Allergic/Immunologic: Reports seasonal allergies Objective - Constitutional General appearance: Present: cooperative - EENT Eyes: Present: EOMI ENT: Present: hearing grossly normal - Neck Neck: Present: normal ROM - Respiratory Respiratory: bilateral: CTA - Cardiovascular Rhythm: regular Heart sounds: normal: S1, S2 - Integumentary Integumentary: Present: normal turgor - Musculoskeletal Musculoskeletal: Present: gait normal - Psychiatric Psychiatric: Present: A&O x's 3, appropriate affect, intact judgment & insight - Additional findings Additional findings: Breast Exam: BRA: 42C Inspection: Right breast reduction mammoplasty, incisions clean and dry, left breast latissimus flap reconstruction Palpation: Right breast: Multiple positional exam fibrocystic changes no dominant masses or nodules of concern, postoperative changes Right axilla: No adenopathy of concern Left chest wall: Latissimus dorsi reconstruction, no evidence of any recurrent cancer Left axilla: No adenopathy of concern Assessment and Plan Assessment: Impression: Stages 0 multifocal left breast DCIS no evidence of recurrence At this time the patient has chosen to stop the aromatase inhibitor Attempted reconstruction twice was unsuccessful secondary to seroma/infection, she is status post left chest wall latissimus dorsi reconstruction Right breast reduction mammoplasty Plan: right breast mammogram on 07-13-24 BIRAD 2, repeat in one year with follow up Follow-up sooner any questions or concerns She may opt to have some revision to the reconstruction and will follow-up with plastic surgery if she chooses to do this Cc: Dr. Dodd
== END ==
LOC: WWCWWP 10:05
PROVIDERS: ATTEND Surgery
DX: R92.0 Mammographic microcalcification found on diagnostic imaging of breast (principal); R92.8 Other abnormal and inconclusive findings on diagnostic imaging of breast; Z85.3 Personal history of malignant neoplasm of breast; Z90.12 Acquired absence of left breast and nipple; Z88.5 Allergy status to narcotic agent

== ENCOUNTER → 2024-11-30 | Outpatient (CLI) | payer BC ==
--- NOTE | 2024-11-30 18:14 | XR ---
EXAMINATION TYPE: XR chest 2V DATE OF EXAM: 11/30/2024 4:50 PM COMPARISON: Chest CT December 03, 2023. CLINICAL INDICATION: Female, 64 years old with history of R05.3, cough and congestion. TECHNIQUE: Frontal and lateral views of the chest are obtained. FINDINGS: There is no focal air space opacity, pleural effusion, or pneumothorax seen. The cardiac silhouette size remains within normal limits. The osseous structures are intact. IMPRESSION: No acute pulmonary process. [facility], , 11/30/2024 6:12 PM
== END | disposition home or self-care (01) ==
LOC: RADXRMAIN 16:22
PROVIDERS: ATTEND Nurse Practitioner Family
DX: R05.3 Chronic cough (principal)
CPT/HCPCS: 71046